=== PATIENT | male | born 1950 | race Caucasian/White ===

== ENCOUNTER → 2024-05-13 14:05 | Outpatient (REF) | payer MEDICARE, OTHER, SELFPAY | LOC: UCDH 14:05 | PROVIDERS: ATTENDING PHYSICIAN Emergency Medicine; FAMILY PHYSICIAN Family Medicine | DX: R05.3 Chronic cough (principal) | CPT/HCPCS: 71046 ==

== ENCOUNTER → 2024-05-15 15:09 | Outpatient (REF) | payer MEDICARE, OTHER, SELFPAY | LOC: RAD 15:09 | PROVIDERS: ATTENDING PHYSICIAN Internal Medicine Critical Care Medicine; FAMILY PHYSICIAN Family Medicine | DX: R91.8 Other nonspecific abnormal finding of lung field (principal) | CPT/HCPCS: 71250 ==

== ENCOUNTER 2024-05-25 06:10 | Day surgery (SDC) | payer MEDICARE, OTHER, SELFPAY ==
[2024-05-21 09:26] VITALS: BMI 31.2
[2024-05-25] VITALS (8 sets, daily range): BP systolic 121–162; BP diastolic 71–97; BMI 31.2; BMI 31.7
== END 2024-05-25 15:12 | disposition home or self-care (01) ==
LOC: SDS 06:10
PROVIDERS: ATTENDING PHYSICIAN Internal Medicine Critical Care Medicine
DX: C34.31 Malignant neoplasm of lower lobe, right bronchus or lung (principal); R93.89 Abnormal findings on diagnostic imaging of other specified body structures; C34.11 Malignant neoplasm of upper lobe, right bronchus or lung; R91.8 Other nonspecific abnormal finding of lung field
CPT/HCPCS: 31629; 31623; 31624; 31627; 31654; 88172; 88173; 88305; 71045; 76000; 81459; 88112; 88177; 88333; 88341; 88342; 94640; C1887

== ENCOUNTER → 2024-06-10 17:53 | Outpatient (REF) | payer MEDICARE, OTHER, SELFPAY | LOC: MRI 17:53 | PROVIDERS: ATTENDING PHYSICIAN Internal Medicine Hematology & Oncology; FAMILY PHYSICIAN Family Medicine | DX: C34.11 Malignant neoplasm of upper lobe, right bronchus or lung (principal) | CPT/HCPCS: 70553; A9575 ==

== ENCOUNTER 2024-06-23 06:35 | Day surgery (SDC) | payer MEDICARE, OTHER, SELFPAY ==
[2024-06-23] VITALS (8 sets, daily range): BP systolic 114–173; BP diastolic 81–93; BMI 32.1
[2024-06-23] MEDS: NEURONTIN 300 MG PO (13:16)
[2024-06-23] MEDS: TYLENOL 1000 MG PO (13:17)
[2024-06-23] MEDS: HEPARIN 5000 UNITS SC (13:29)
[2024-06-23] MEDS: NORMOSOL-R/PLASMALYTE-A 1000 IV (13:34)
--- NOTE | 2024-06-23 18:00 | PTCARENOTE ---
Dr Prescott came to see PT after portable Xray, Per DR Prescott, PT ok to leave, PT with no complaints, O2 sats, 92-95% RA
[2024-06-23] MEDS: ZOFRAN 4 MG IV (18:30)
--- NOTE | 2024-06-27 15:43 | OR.RPT ---
Operative Report
Operative Report
Date of Operation: June 23, 2024
Preoperative Diagnosis: Right upper lobe lung cancer - C3411
Postoperative Diagnosis: Same
Surgeon: Jarod Prescott M.D.
Operation: Insertion of the single-lumen port via the right subclavian vein - 38317
����������������Mediastinoscopy and biopsy � [id number]
Anesthesia: Local with IV sedation
Estimated Blood Loss: 1 cc
Drains: None
Specimen: Right upper mediastinal mass and right level 4 paratracheal lymph node
Complications: �None
Procedure:
The patient was taken to the operating room and placed in the usual supine position. After adequate general endotracheal anesthesia was established, the patient's neck was extended. The neck and upper chest were prepped, and the patient was draped
in the usual self-fashion.
Approximately 3 cm transverse incision was made 4 cm below the left midclavicular line after injecting the area with 1% lidocaine. An incision was made with a #15 blade, and a subcutaneous pocket was created using electrocautery.� The left
subclavian vein was accessed using a large-bore needle through the same incision. The guidewire was passed through the needle into the SVC and confirmed on the fluoroscopy. Over the guidewire, the subcutaneous tissue was dilated, and the
angio-sheath was placed in the SVC. The port was placed in the subcutaneous pocket, and the catheter was passed through the angio-sheath into the SVC and confirmed on fluoroscopy.� The ports were aspirated and flushed without any resistance.� After
obtaining adequate hemostasis, the incision was closed in multiple layers. The subcutaneous tissue was reapproximated with # 3-0 Vicryl, and the skin was reapproximated with #4-0 Monocryl in a running subcuticular fashion.
Next, attention was turned to his neck. A two-centimeter cervical incision was made just above the sternal notch using a #15 blade, which was taken through the skin into subcutaneous tissue. The underlying platysma muscle was divided with
electrocautery. The strap muscles were identified and at the midline. The trachea was palpated, and the pretracheal fascia was incised. The anterior mediastinum above the trachea was entered bluntly using a finger. This space was bluntly
dissected toward the ashlee. �A mediastinoscope was placed through the incision into the mediastinum. A lymph node was identified in the right paratracheal area, biopsied using biopsy forceps, and sent to pathology for permanent section. In the
supra-mediastinal area, a nodule was palpated on the right side of the trachea, biopsied, and sent to pathology for a frozen section, which revealed findings consistent with thyroid tissue. Hemostasis was obtained. The strap muscles were
re-approximated with # 3-0 Vicryl in a running fashion. The platysma was also re-approximated with #3-0 Vicryl in an interrupted fashion. The skin was approximated with 4-0 Monocryl in a running subcuticular fashion. Steri-Strips and a pressure
dressing were applied. The patient tolerated the procedure well. The final needle, sponge, and instrument counts were correct. The patient was extubated and sent to the recovery room, where a chest x-ray was obtained, which revealed no evidence of
pneumothorax or any evidence of bleeding.
== END 2024-06-23 19:29 | disposition home or self-care (01) ==
LOC: SDS 06:35
PROVIDERS: ATTENDING PHYSICIAN Surgery
DX: C34.11 Malignant neoplasm of upper lobe, right bronchus or lung (principal)
CPT/HCPCS: 39402; 36561; 88305; 88332; 71045; 76000; 86850; 86900; 86901; 88331; 88341; 88342; C1788

== ENCOUNTER → 2024-07-21 16:09 | Outpatient (REF) | payer MEDICARE, OTHER, SELFPAY ==
[2024-07-21 15:04] LABS: % Basophils 0.4 % (0-2); % Immature Granulocytes 1.3 % (0-0.5); % Lymphocytes 17.1 % (20.5-51.1); % Monocytes 8.2 % (1.7-9.3); Absolute Basophils 0.1 10^3/uL (0-0.2); Absolute Eosinophils 0.9 10^3/uL (0-0.7); Absolute Immature Granulocytes 0.2 10^3/uL (0-0.05); Absolute Lymphocytes 2.1 10^3/uL (1.2-3.4); Absolute Neutrophils 8.3 10^3/uL (1.4-6.5); Hematocrit 45.5 % (39.0-52.0); Hemoglobin 15.3 g/dL (13.0-18.0); Mean Corp Hgb Conc. 33.6 g/dL (33.0-37.0); Mean Corpuscular Hgb 28.4 pg (27.0-31.0); Mean Corpuscular Volume 84.4 fL (80.0-94.0); Mean Platelet Volume 8.8 fL (7.4-10.4); Platelet Count 389 10^3/uL (130-400); Red Blood Cell Count 5.39 10^6/uL (4.70-6.10); Red Cell Dist. Width 13.1 % (11.5-14.5); White Blood Cell Count 12.5 10^3/uL (4.8-10.8)
[2024-07-21 15:52] LABS: ALT (SGPT) 15 U/L (0-50); AST (SGOT) 20 U/L (17-59); Albumin 4.8 g/dl (3.5-5.0); Alkaline Phosphatase 122 U/L (38-126); Blood Urea Nitrogen 18 mg/dl (9-20); Calcium 9.5 mg/dl (8.4-10.2); Carbon Dioxide 26 mmol/L (22-30); Chloride 95 mmol/L (98-107); Glucose 96 mg/dl (70-99); Potassium 4.5 mmol/L (3.5-5.1); Sodium 133 mmol/L (135-145); Total Bilirubin 0.6 mg/dl (0.2-1.3); Total Protein 7.5 g/dl (6.3-8.2); eGFR > 60.00
[2024-07-21 17:18] LABS: Free T3 3.66 pg/ml (2.77-5.27)
[2024-07-21 17:32] LABS: TSH 3.12 uIU/ml (0.47-4.68); TSH Reflex To Free T4 3.12 uIU/ml (0.47-4.68)
[2024-07-21 18:25] LABS: CEA 20.6 ng/ml
== END ==
LOC: OIDL 16:09
PROVIDERS: ATTENDING PHYSICIAN Internal Medicine Hematology & Oncology
DX: C34.11 Malignant neoplasm of upper lobe, right bronchus or lung (principal); R53.82 Chronic fatigue, unspecified
CPT/HCPCS: 80053; 82378; 84443; 84481; 85025

== ENCOUNTER → 2024-08-11 12:35 | Outpatient (REF) | payer MEDICARE, OTHER, SELFPAY ==
[2024-08-11 13:38] LABS: Hematocrit 41.6 % (39.0-52.0); Hemoglobin 13.9 g/dL (13.0-18.0); Mean Corp Hgb Conc. 33.4 g/dL (33.0-37.0); Mean Corpuscular Hgb 28.4 pg (27.0-31.0); Mean Corpuscular Volume 85.1 fL (80.0-94.0); Mean Platelet Volume 8.7 fL (7.4-10.4); Platelet Count 556 10^3/uL (130-400); Red Blood Cell Count 4.89 10^6/uL (4.70-6.10); Red Cell Dist. Width 13.8 % (11.5-14.5); White Blood Cell Count 6.9 10^3/uL (4.8-10.8)
[2024-08-11 13:44] LABS: ALT (SGPT) 34 U/L (0-50); AST (SGOT) 26 U/L (17-59); Alkaline Phosphatase 127 U/L (38-126); Blood Urea Nitrogen 14 mg/dl (9-20); Calcium 9.3 mg/dl (8.4-10.2); Carbon Dioxide 28 mmol/L (22-30); Chloride 96 mmol/L (98-107); Glucose 89 mg/dl (70-99); Potassium 4.9 mmol/L (3.5-5.1); Sodium 132 mmol/L (135-145); Total Bilirubin 0.2 mg/dl (0.2-1.3); Total Protein 6.5 g/dl (6.3-8.2); eGFR > 60.00
[2024-08-11 14:00] LABS: Free T4 0.99 ng/dl (0.78-2.19)
[2024-08-11 14:07] LABS: % Basophils 1.5 % (0-2); % Eosinophils 11.5 % (0-6); % Immature Granulocytes 5.2 % (0-0.5); % Lymphocytes 26.5 % (20.5-51.1); % Monocytes 16.7 % (1.7-9.3); % Neutrophils 38.6 % (42.2-75.2); Absolute Basophils 0.1 10^3/uL (0-0.2); Absolute Eosinophils 0.8 10^3/uL (0-0.7); Absolute Immature Granulocytes 0.4 10^3/uL (0-0.05); Absolute Lymphocytes 1.8 10^3/uL (1.2-3.4); Absolute Monocytes 1.2 10^3/uL (0.1-0.6); Absolute Neutrophils 2.7 10^3/uL (1.4-6.5); Nucleated Red Blood Cells % 0 % (-)
[2024-08-11 14:14] LABS: TSH Reflex To Free T4 4.28 uIU/ml (0.47-4.68)
[2024-08-13 18:43] LABS: Total T3 (Sendout) 127 ng/dL (80-200)
== END ==
LOC: REG 12:35
PROVIDERS: ATTENDING PHYSICIAN Internal Medicine Hematology & Oncology
DX: C34.11 Malignant neoplasm of upper lobe, right bronchus or lung (principal); E78.2 Mixed hyperlipidemia
CPT/HCPCS: 36415; 80053; 84439; 84443; 84480; 85025

== ENCOUNTER → 2024-09-01 11:05 | Outpatient (REF) | payer MEDICARE, OTHER, SELFPAY ==
[2024-09-01 12:15] LABS: Hematocrit 41.8 % (39.0-52.0); Hemoglobin 13.9 g/dL (13.0-18.0); Mean Corp Hgb Conc. 33.3 g/dL (33.0-37.0); Mean Corpuscular Hgb 28.5 pg (27.0-31.0); Mean Corpuscular Volume 85.8 fL (80.0-94.0); Mean Platelet Volume 8.8 fL (7.4-10.4); Platelet Count 355 10^3/uL (130-400); Red Blood Cell Count 4.87 10^6/uL (4.70-6.10); Red Cell Dist. Width 15.4 % (11.5-14.5)
[2024-09-01 12:23] LABS: ALT (SGPT) 36 U/L (0-50); AST (SGOT) 26 U/L (17-59); Alkaline Phosphatase 137 U/L (38-126); Blood Urea Nitrogen 17 mg/dl (9-20); Calcium 9.5 mg/dl (8.4-10.2); Carbon Dioxide 28 mmol/L (22-30); Chloride 98 mmol/L (98-107); Glucose 110 mg/dl (70-99); Potassium 4.8 mmol/L (3.5-5.1); Sodium 132 mmol/L (135-145); Total Bilirubin 0.3 mg/dl (0.2-1.3); Total Protein 6.5 g/dl (6.3-8.2); eGFR > 60.00
[2024-09-01 12:52] LABS: TSH Reflex To Free T4 3.49 uIU/ml (0.47-4.68)
[2024-09-01 12:55] LABS: % Eosinophils 7.4 % (0-6); % Immature Granulocytes 5.7 % (0-0.5); % Lymphocytes 26.6 % (20.5-51.1); % Neutrophils 44.3 % (42.2-75.2); Absolute Basophils 0.1 10^3/uL (0-0.2); Absolute Eosinophils 0.4 10^3/uL (0-0.7); Absolute Immature Granulocytes 0.3 10^3/uL (0-0.05); Absolute Lymphocytes 1.6 10^3/uL (1.2-3.4); Absolute Monocytes 0.9 10^3/uL (0.1-0.6); Absolute Neutrophils 2.6 10^3/uL (1.4-6.5); Nucleated Red Blood Cells % 0 % (-)
[2024-09-02 15:57] LABS: Total T3 (Sendout) 137 ng/dL (80-200)
== END ==
LOC: REG 11:05
PROVIDERS: ATTENDING PHYSICIAN Internal Medicine Hematology & Oncology
DX: C34.11 Malignant neoplasm of upper lobe, right bronchus or lung (principal); E03.9 Hypothyroidism, unspecified
CPT/HCPCS: 36415; 80053; 84439; 84443; 84480; 85025

== ENCOUNTER → 2024-09-22 09:26 | Outpatient (REF) | payer MEDICARE, OTHER, SELFPAY ==
[2024-09-22 11:30] LABS: % Basophils 0.9 % (0-2); % Eosinophils 4.6 % (0-6); % Immature Granulocytes 2.9 % (0-0.5); % Lymphocytes 28.6 % (20.5-51.1); % Monocytes 16.9 % (1.7-9.3); % Neutrophils 46.1 % (42.2-75.2); Absolute Eosinophils 0.2 10^3/uL (0-0.7); Absolute Immature Granulocytes 0.1 10^3/uL (0-0.05); Absolute Lymphocytes 1.3 10^3/uL (1.2-3.4); Absolute Monocytes 0.8 10^3/uL (0.1-0.6); Absolute Neutrophils 2.1 10^3/uL (1.4-6.5); Hematocrit 41.3 % (39.0-52.0); Hemoglobin 13.9 g/dL (13.0-18.0); Mean Corp Hgb Conc. 33.7 g/dL (33.0-37.0); Mean Corpuscular Hgb 29.4 pg (27.0-31.0); Mean Corpuscular Volume 87.5 fL (80.0-94.0); Nucleated Red Blood Cells % 0 % (-); Platelet Count 351 10^3/uL (130-400); Red Blood Cell Count 4.72 10^6/uL (4.70-6.10); White Blood Cell Count 4.6 10^3/uL (4.8-10.8)
[2024-09-22 12:24] LABS: ALT (SGPT) 38 U/L (0-50); AST (SGOT) 28 U/L (17-59); Albumin 3.9 g/dl (3.5-5.0); Alkaline Phosphatase 115 U/L (38-126); Blood Urea Nitrogen 22 mg/dl (9-20); Calcium 9.6 mg/dl (8.4-10.2); Carbon Dioxide 28 mmol/L (22-30); Chloride 102 mmol/L (98-107); Glucose 98 mg/dl (70-99); Potassium 5.4 mmol/L (3.5-5.1); Sodium 135 mmol/L (135-145); Total Bilirubin 0.4 mg/dl (0.2-1.3); Total Protein 6.4 g/dl (6.3-8.2); eGFR > 60.00
[2024-09-22 12:35] LABS: Free T4 0.92 ng/dl (0.78-2.19)
[2024-09-22 12:49] LABS: TSH Reflex To Free T4 3.88 uIU/ml (0.47-4.68)
[2024-09-23 17:10] LABS: Total T3 (Sendout) 131 ng/dL (80-200)
== END ==
LOC: REG 09:26
PROVIDERS: ATTENDING PHYSICIAN Internal Medicine Hematology & Oncology
DX: C34.11 Malignant neoplasm of upper lobe, right bronchus or lung (principal); E03.9 Hypothyroidism, unspecified
CPT/HCPCS: 36415; 80053; 84439; 84443; 84480; 85025

== ENCOUNTER → 2024-10-13 10:49 | Outpatient (REF) | payer MEDICARE, OTHER, SELFPAY ==
[2024-10-13 11:41] LABS: Hematocrit 38.5 % (39.0-52.0); Mean Corp Hgb Conc. 33.8 g/dL (33.0-37.0); Mean Corpuscular Hgb 29.8 pg (27.0-31.0); Mean Corpuscular Volume 88.3 fL (80.0-94.0); Platelet Count 304 10^3/uL (130-400); Red Blood Cell Count 4.36 10^6/uL (4.70-6.10); Red Cell Dist. Width 17.6 % (11.5-14.5); White Blood Cell Count 4.9 10^3/uL (4.8-10.8)
[2024-10-13 11:56] LABS: ALT (SGPT) 32 U/L (0-50); AST (SGOT) 27 U/L (17-59); Albumin 3.9 g/dl (3.5-5.0); Alkaline Phosphatase 118 U/L (38-126); Blood Urea Nitrogen 21 mg/dl (9-20); Calcium 9.4 mg/dl (8.4-10.2); Carbon Dioxide 27 mmol/L (22-30); Chloride 105 mmol/L (98-107); Glucose 101 mg/dl (70-99); Sodium 139 mmol/L (135-145); Total Bilirubin 0.5 mg/dl (0.2-1.3); Total Protein 6.3 g/dl (6.3-8.2); eGFR 49.16
[2024-10-13 12:13] LABS: Free T4 0.94 ng/dl (0.78-2.19)
[2024-10-13 12:27] LABS: TSH 3.95 uIU/ml (0.47-4.68)
[2024-10-13 15:26] LABS: % Basophils 0.6 % (0-2); % Eosinophils 3.5 % (0-6); % Immature Granulocytes 1.4 % (0-0.5); % Lymphocytes 27.7 % (20.5-51.1); % Monocytes 15.9 % (1.7-9.3); % Neutrophils 50.9 % (42.2-75.2); Absolute Eosinophils 0.2 10^3/uL (0-0.7); Absolute Immature Granulocytes 0.1 10^3/uL (0-0.05); Absolute Lymphocytes 1.4 10^3/uL (1.2-3.4); Absolute Monocytes 0.8 10^3/uL (0.1-0.6); Absolute Neutrophils 2.5 10^3/uL (1.4-6.5); Nucleated Red Blood Cells % 0 % (-)
[2024-10-14 14:13] LABS: Total T3 (Sendout) 130 ng/dL (80-200)
== END ==
LOC: REG 10:49
PROVIDERS: ATTENDING PHYSICIAN Internal Medicine Hematology & Oncology
DX: C34.11 Malignant neoplasm of upper lobe, right bronchus or lung (principal); E03.9 Hypothyroidism, unspecified
CPT/HCPCS: 36415; 80053; 84439; 84443; 84480; 85025

== ENCOUNTER → 2024-11-03 08:37 | Outpatient (REF) | payer MEDICARE, OTHER, SELFPAY ==
[2024-11-03 10:15] LABS: % Basophils 0.8 % (0-2); % Eosinophils 5.6 % (0-6); % Immature Granulocytes 1.6 % (0-0.5); % Monocytes 18.4 % (1.7-9.3); % Neutrophils 42.6 % (42.2-75.2); Absolute Eosinophils 0.2 10^3/uL (0-0.7); Absolute Immature Granulocytes 0.1 10^3/uL (0-0.05); Absolute Lymphocytes 1.2 10^3/uL (1.2-3.4); Absolute Monocytes 0.7 10^3/uL (0.1-0.6); Absolute Neutrophils 1.6 10^3/uL (1.4-6.5); Hematocrit 35.8 % (39.0-52.0); Hemoglobin 12.3 g/dL (13.0-18.0); Mean Corp Hgb Conc. 34.4 g/dL (33.0-37.0); Mean Corpuscular Hgb 31.1 pg (27.0-31.0); Mean Corpuscular Volume 90.6 fL (80.0-94.0); Mean Platelet Volume 9.4 fL (7.4-10.4); Nucleated Red Blood Cells % 0 % (-); Platelet Count 262 10^3/uL (130-400); Red Blood Cell Count 3.95 10^6/uL (4.70-6.10); Red Cell Dist. Width 17.7 % (11.5-14.5); White Blood Cell Count 3.7 10^3/uL (4.8-10.8)
[2024-11-03 10:22] LABS: ALT (SGPT) 29 U/L (0-50); AST (SGOT) 27 U/L (17-59); Albumin 4.2 g/dl (3.5-5.0); Alkaline Phosphatase 115 U/L (38-126); Blood Urea Nitrogen 18 mg/dl (9-20); Calcium 9.2 mg/dl (8.4-10.2); Carbon Dioxide 27 mmol/L (22-30); Chloride 104 mmol/L (98-107); Glucose 108 mg/dl (70-99); Potassium 4.8 mmol/L (3.5-5.1); Sodium 138 mmol/L (135-145); Total Bilirubin 0.4 mg/dl (0.2-1.3); Total Protein 6.4 g/dl (6.3-8.2); eGFR 58.37
[2024-11-03 10:37] LABS: Free T4 0.93 ng/dl (0.78-2.19)
[2024-11-03 10:51] LABS: TSH 4.18 uIU/ml (0.47-4.68)
[2024-11-05 07:35] LABS: Total T3 (Sendout) 126 ng/dL (80-200)
== END ==
LOC: REG 08:37
PROVIDERS: ATTENDING PHYSICIAN Internal Medicine Hematology & Oncology
DX: C34.11 Malignant neoplasm of upper lobe, right bronchus or lung (principal); E03.9 Hypothyroidism, unspecified
CPT/HCPCS: 36415; 80053; 84439; 84443; 84480; 85025

== ENCOUNTER → 2024-11-27 07:13 | Outpatient (REF) | payer MEDICARE, OTHER, SELFPAY | LOC: RCS 07:13 | PROVIDERS: ATTENDING PHYSICIAN Internal Medicine Cardiovascular Disease | DX: I25.10 Atherosclerotic heart disease of native coronary artery without angina pectoris (principal); R01.1 Cardiac murmur, unspecified | CPT/HCPCS: 93306; 93356 ==

== ENCOUNTER 2024-12-01 06:28 | Inpatient (IN) | payer MEDICARE, OTHER, SELFPAY ==
[2024-11-17 08:45] LABS: Hematocrit 39.3 % (39.0-52.0); Hemoglobin 13.4 g/dL (13.0-18.0); Mean Corp Hgb Conc. 34.1 g/dL (33.0-37.0); Mean Corpuscular Hgb 31.8 pg (27.0-31.0); Mean Corpuscular Volume 93.1 fL (80.0-94.0); Mean Platelet Volume 9.6 fL (7.4-10.4); Platelet Count 219 10^3/uL (130-400); Red Blood Cell Count 4.22 10^6/uL (4.70-6.10); Red Cell Dist. Width 16.7 % (11.5-14.5); White Blood Cell Count 7.5 10^3/uL (4.8-10.8)
[2024-11-17 09:00] LABS: ALT (SGPT) 19 U/L (0-50); AST (SGOT) 30 U/L (17-59); Albumin 4.4 g/dl (3.5-5.0); Alkaline Phosphatase 95 U/L (38-126); Blood Urea Nitrogen 18 mg/dl (9-20); Calcium 9.2 mg/dl (8.4-10.2); Carbon Dioxide 28 mmol/L (22-30); Chloride 104 mmol/L (98-107); Glucose 106 mg/dl (70-99); Potassium 4.7 mmol/L (3.5-5.1); Sodium 141 mmol/L (135-145); Total Bilirubin 0.7 mg/dl (0.2-1.3); Total Protein 6.6 g/dl (6.3-8.2); eGFR 49.16
[2024-11-17 09:02] LABS: INR 0.96; PT 13.1 Sec (11.4-14.6)
[2024-11-17 09:03] LABS: APTT 27.3 Sec (23.4-35.0)
[2024-11-17 13:04] VITALS: BMI 32.1
[2024-12-01] VITALS (22 sets, daily range): BP systolic 125–177; BP diastolic 78–124; BMI 32.1
[2024-12-01] MEDS: HEPARIN 5000 UNITS SC ×2 (06:57→21:07)
[2024-12-01] MEDS: TYLENOL 1000 MG PO (06:57)
[2024-12-01] MEDS: NEURONTIN 300 MG PO (06:57)
[2024-12-01] MEDS: NORMOSOL-R/PLASMALYTE-A 1000 IV (07:33)
--- NOTE | 2024-12-01 12:17 | OR.RPT ---
Operative Report
Operative Report
Patient Name: Timothy Shook
Date of : 1950 12:16 PM
Date of Operation: December 01, 2024
Preoperative Diagnosis: Right upper lobe lung cancer - C3411
Postoperative Diagnosis: Same
Surgeon: Jarod Prescott M.D.
Operation: Minimally invasive right upper lobectomy and resection of the superior segment of the right lower lobe � 65278, and mediastinal lymph node dissection - 72188
Anesthesia: GET
Estimated Blood Loss: 50 cc
Drains: Chest tube in the right chest
Specimen: Right upper lobe with the superior segment of the right lower lobe and mediastinal lymph nodes
Complications: None
Procedure:
The patient was taken to the operating room and placed in the usual supine position. After an adequate double-lumen endotracheal tube was placed, the patient was positioned in the left decubitus position with the right chest up. The right chest was
prepped and draped in the usual sterile fashion. At this time, a 6 cm mid-axillary incision was made with a #10 blade, and this was taken through the skin into the subcutaneous tissue. The serratus anterior muscle overlying the 5th intercostal space
was identified and split along the course of the muscle fibers. The intercostal muscle of the fifth intercostal space was divided, and the left chest was entered. The left chest was explored. The tumor in the posterior aspect of the right lower lobe
involving the right lower lobe was identified.
The fissure between the right upper lobe and the right middle lobe was completed using Ligasure and EndoGIA purple tri-stapler. To remove the tumor completely, the superior segment of the right lower lobe was resected with the main specimen. The
left pulmonary artery branches to the right upper lobe were identified, carefully dissected, ligated, and divided with an EndoGIA gold vascular stapler. The right superior vein draining the right upper lobe was identified, carefully dissected,
transected, and ligated with an EndoGIA vascular gold stapler. The bronchus was dissected, transected, and divided with an EndoGIA purple stapler. The right upper lobe with the superior segment of the right lower lobe was removed and sent to
pathology for a permanent section. At this time, mediastinal lymph node dissection was performed. The lymph nodes from stations 4 to 8 were taken and sent to pathology for permanent section. One of the 4R lymph nodes was noted to be hard and stuck
to the tracheal, which most likely represent the previous biopsied LN. The partially this lymph node was taken and sent to the pathology department as 4R LN #2. Hemostasis was obtained. A 28 [place] chest tube was placed through the anterior
thoracostomy incision and anchored to the skin using a #2 nylon suture. The ribs were re-approximated with 1 Vicryl in the transcostal fascia. The serratus anterior muscle was also re-approximated with 1 Vicryl in a running fashion. The fascia was
approximated with 1 Vicryl in a running fashion. The subcutaneous tissue was re-approximated with 3-0 Vicryl in a running fashion. The skin was approximated with 4-0 Monocryl in a running subcuticular fashion. Steri-strips and a sterile dressing
were placed. The chest tube was connected to the Pleurovac. The patient was placed back in the supine position and extubated without any problems. The final needle, sponge, and instrument counts were correct. The patient was transferred to the
recovery room.
[2024-12-01] MEDS: ZOFRAN 4 MG IV ×2 (15:55→22:57)
[2024-12-01] MEDS: D5/0.9% SODIUM CHLORIDE 1000 IV (15:56)
[2024-12-01] MEDS: DILAUDID 0.5 MG IV ×3 (16:26→22:57)
[2024-12-01] MEDS: TYLENOL 650 MG PO ×2 (16:26→21:07)
[2024-12-01] MEDS: NEURONTIN 200 MG PO ×2 (16:26→21:06)
[2024-12-01] MEDS: ANCEF 10 IV ×2 (16:26→23:39)
--- NOTE | 2024-12-01 16:44 | PTCARENOTE ---
Patient admitted from PACU. Chest tube site CDI. at bedside. Patient given IV Zofran and Dilaudid per request. Call barnett within reach.
--- NOTE | 2024-12-01 18:37 | PTCARENOTE ---
MD made aware of bps. Patient c/o of moderate pain. Dilaudid given per prn order. Otherwise patient having no other symptoms. Patient sating 97% on 2 L. No new orders at this time.
[2024-12-01] MEDS: COLACE 100 MG PO (21:07)
[2024-12-01] MEDS: TYLENOL PO (23:45)
[2024-12-02] MEDS: DILAUDID 0.5 MG IV ×4 (02:35→11:06)
[2024-12-02 03:08] VITALS: BP 157/89
[2024-12-02] MEDS: ZOFRAN 4 MG IV ×2 (05:05→11:09)
[2024-12-02] MEDS: TYLENOL 650 MG PO ×6 (05:06→23:08)
[2024-12-02] MEDS: D5/0.9% SODIUM CHLORIDE 1000 IV (05:06)
[2024-12-02 05:08] LABS: Hematocrit 34.6 % (39.0-52.0); Hemoglobin 12.1 g/dL (13.0-18.0); Mean Corpuscular Hgb 31.9 pg (27.0-31.0); Mean Corpuscular Volume 91.3 fL (80.0-94.0); Mean Platelet Volume 9.3 fL (7.4-10.4); Platelet Count 200 10^3/uL (130-400); Red Blood Cell Count 3.79 10^6/uL (4.70-6.10); Red Cell Dist. Width 14.4 % (11.5-14.5)
[2024-12-02 05:37] LABS: Blood Urea Nitrogen 18 mg/dl (9-20); Carbon Dioxide 24 mmol/L (22-30); Chloride 107 mmol/L (98-107); Estimated Creatinine Clearance 62 ml/min; Glucose 157 mg/dl (70-99); Potassium 4.6 mmol/L (3.5-5.1); Sodium 136 mmol/L (135-145); eGFR > 60.00
[2024-12-02 07:05] VITALS: BP 160/90
[2024-12-02] MEDS: PEPCID 20 MG PO (07:45)
[2024-12-02] MEDS: COLACE 100 MG PO ×2 (07:45→21:10)
[2024-12-02] MEDS: NEURONTIN 200 MG PO ×3 (07:45→21:10)
[2024-12-02] MEDS: HEPARIN 5000 UNITS SC ×2 (07:45→21:10)
[2024-12-02] MEDS: ANCEF 10 IV (07:46)
[2024-12-02] MEDS: COMPAZINE 5 MG IV ×2 (07:47→15:18)
--- NOTE | 2024-12-02 09:52 | CM ---
CM following re: discharge planning.
Reviewed pt's chart, met with pt.
Pt is a 74 year old male, admitted with primary dx of POD # 1 right upper lobectomy and resection of the superior segment of the right lower lobe.
Pt reports he lives with spouse and adult autistic son in a 4SH, 4 steps to enter. 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 No DME, VN or SNF history. Pt expressed his desire to return back home at discharge.
PCP: pt stated he does not have PCP, has a list of physician and she will choose one soon.
Pharmacy: [facility].
D/C plan: home with anticipated no needs. Spouse to transport at discharge.
CM will follow with discharge plan updates as hospitalization progresses
[2024-12-02 11:05] VITALS: BP 161/90; PULSE 74; O2SAT 98
--- NOTE | 2024-12-02 14:55 | W.PN.GENERIC ---
Assessment / Plan
-
S/p Minimally invasive right upper lobectomy POD #1
Stable
Chest tube to H2O seal
Inc diet to regular
Will add Toradol
OOB and ambulate
Physician Progress Note
Subjective
NO complaint. No SOB. Good pain control
Objective
Vital Signs
Temp Pulse Resp BP Pulse Ox
98.0 F 74 17 160/90 99
12/02/24 07:05 12/02/24 07:05 12/02/24 07:05 12/02/24 07:05 12/02/24 07:05
Lab Results
12/02/24 05:02
12/02/24 05:02
CHest CTA x2
CHest tube without air leak
[2024-12-02 15:05] VITALS: BP 124/78
[2024-12-02] MEDS: TORADOL 15 MG IV ×2 (17:04→23:08)
[2024-12-02 23:02] VITALS: BP 150/93
--- NOTE | 2024-12-02 23:30 | PTCARENOTE ---
Pt is retaining some urine, see worklist. Most recent PVR= 450mL after pt voided 180mL. Pt declining straight cath at this time. Education provided and plan made to recheck bladder in the morning.
[2024-12-03 04:12] LABS: Hematocrit 35.3 % (39.0-52.0); Hemoglobin 11.5 g/dL (13.0-18.0); Mean Corp Hgb Conc. 32.6 g/dL (33.0-37.0); Mean Corpuscular Hgb 31.3 pg (27.0-31.0); Mean Corpuscular Volume 95.9 fL (80.0-94.0); Mean Platelet Volume 9.5 fL (7.4-10.4); Platelet Count 188 10^3/uL (130-400); Red Blood Cell Count 3.68 10^6/uL (4.70-6.10); Red Cell Dist. Width 14.2 % (11.5-14.5); White Blood Cell Count 13.2 10^3/uL (4.8-10.8)
[2024-12-03 04:39] LABS: Blood Urea Nitrogen 15 mg/dl (9-20); Calcium 8.2 mg/dl (8.4-10.2); Carbon Dioxide 26 mmol/L (22-30); Chloride 110 mmol/L (98-107); Estimated Creatinine Clearance 68 ml/min; Glucose 115 mg/dl (70-99); Sodium 139 mmol/L (135-145); eGFR > 60.00
[2024-12-03] MEDS: TORADOL 15 MG IV ×4 (05:04→23:42)
[2024-12-03] MEDS: TYLENOL 650 MG PO ×5 (05:04→20:33)
[2024-12-03 07:00] VITALS: BP 160/90
[2024-12-03] MEDS: ROXICODONE 5 MG PO ×2 (07:50→20:32)
[2024-12-03] MEDS: PEPCID 20 MG PO (07:51)
[2024-12-03] MEDS: COLACE 100 MG PO ×2 (07:51→20:33)
[2024-12-03] MEDS: HEPARIN 5000 UNITS SC ×2 (07:51→20:33)
[2024-12-03] MEDS: NEURONTIN 200 MG PO ×3 (07:51→20:32)
[2024-12-03 08:58] VITALS: BMI 32.1
[2024-12-03 09:33] VITALS: BP 169/102; PULSE 94; O2SAT 96
--- NOTE | 2024-12-03 12:49 | PTCARENOTE ---
Patient seen at bedside and Chest tube removed by Dr. Prescott. R thorax site dressing C/D/I at this time. No s/s of distress noted. Plan of care ongoing.
--- NOTE | 2024-12-03 12:51 | W.PN.GENERIC ---
Assessment / Plan
-
S/p min inv right upper lobectomy. POD #2
Surgically stable
Chest tube removed. Will check CXR in 3 hours
OOB and ambulate
Await path
Physician Progress Note
Subjective
no complaints. excellent pain control
Objective
Vital Signs
Temp Pulse Resp BP Pulse Ox
98.2 F 91 17 160/90 95
12/03/24 07:00 12/03/24 07:00 12/03/24 07:00 12/03/24 07:00 12/03/24 08:58
Lab Results
12/03/24 03:47
12/03/24 03:47
Chest - CTA x 2
Chest tube without airleak
--- NOTE | 2024-12-03 12:56 | CM ---
CM following re: discharge planning.
Reviewed pt';s chart, met with pt.
Pt is POD #2 S/p min inv right upper lobectomy, continue supportive care.
PT and POT evaluations noted - pt has no skilled PT/OT needs, independent with functional ability.
D/C plan: home with no after care VN needs. Spouse to transport at discharge.
[2024-12-03 15:00] VITALS: BP 164/97
[2024-12-03] MEDS: TYLENOL PO (23:46)
[2024-12-04] VITALS (7 sets, daily range): BP systolic 140–194; BP diastolic 86–110
[2024-12-04] MEDS: TYLENOL PO (04:47)
--- NOTE | 2024-12-04 07:15 | PTCARENOTE ---
Have discussed pt's HTN with the pediatric nurse practitioner provider throughout the shift. No orders given until change of shift. Day shift RN to give dose of hydalazine now. No complaints noted from pt. No s/s of distress assessed.
[2024-12-04] MEDS: APRESOLINE 5 MG IV (07:17)
[2024-12-04] MEDS: TORADOL IV (07:25)
[2024-12-04] MEDS: ROXICODONE 5 MG PO (08:56)
[2024-12-04] MEDS: NEURONTIN 200 MG PO ×3 (08:58→20:31)
[2024-12-04] MEDS: COLACE 100 MG PO ×2 (08:58→20:31)
[2024-12-04] MEDS: TYLENOL 650 MG PO ×4 (08:58→20:31)
[2024-12-04] MEDS: HEPARIN 5000 UNITS SC ×2 (08:59→20:31)
[2024-12-04] MEDS: PEPCID 20 MG PO (08:59)
[2024-12-04] MEDS: TORADOL 15 MG IV ×2 (11:41→17:28)
--- NOTE | 2024-12-04 12:24 | CON.CAR ---
Addendum entered and electronically signed by Gal Capellan MD 12/04/24 16:51:
I saw and examined the patient.
The Apron Operator's note was reviewed and I agree with the note.
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
Postoperatively he has been persistently hypertensive and blood pressure has been difficult to control
Does not carry diagnosis of hypertension and tells me blood pressures been relatively well-controlled at home off of medications
Suspect that in the near term he will need 1-2 antihypertensive medications to control his blood pressure
Start amlodipine 5 mg daily, first dose today
If he remains hypertensive can add an additional agent tomorrow
Rest per Natividad Soto
Original Note:
Consultation
Consultation Request
Date/Time Consultation Requested: 12/04/2024
Date/Time Consultation Performed: 12/04/2024
Requesting Provider: Dr. Jarod Prescott
Performing Provider: Natividad Soto PA-C for Dr. Gal Capellan
Reason for Consultation: Uncontrolled hypertension
Medical History
-
History of Present Illness:
Patient is a 74-year-old male with past medical history significant for basal cell carcinoma, hyperlipidemia and non-small cell right upper lobe lung cancer. Patient is treated with Chemo/Immunotherapy:� Carboplatinum/Alimta/Keytruda and follows
with Dr. Wharton. He was electively admitted 12/01/2024 and underwent minimally invasive right upper lobectomy without complication. Cardiology being asked to see patient given difficult to control hypertension throughout admission. Patient reports
he does not have history of hypertension however since starting his chemotherapy his blood pressures have been trending upward recently. He was also noted to be hypertensive in cardiology office for preop clearance.
Past medical history:
Hyperlipidemia
Right upper lobe non-small cell lung cancer
Basal cell carcinoma
History of depression
Past Medical History
Past Medical History: Other (See HPI)
Past Surgical History: Tonsilectomy and Other (mediasteinectomy May 2024, left side port placement June 2024)
Social History
Alcohol: None
Drug: None
Personal:
Living: With Family
Family History
Family History: Other (Father with heart failure, CAD/CABG. mother had history of heart failure)
Allergies / Home Medications
Allergy/AdvReac Type Severity Reaction Status Date / Time
codeine Allergy Tongue Verified 12/01/24 06:48
Swelling
�Medication �Instructions �Recorded �Confirmed �Type
No Meds [No Current Medications] 06/18/24 12/01/24 History
Review of Systems
-
History Source: Patient
All other systems: Negative unless noted
Physical Exam
Vital Signs
Temp Pulse Resp BP Pulse Ox
98.6 F 90 17 170/100 98
12/04/24 12:06 12/04/24 12:06 12/04/24 12:06 12/04/24 12:06 12/04/24 12:06
GEN: No distress, awake, Ox3, sitting in bed
HEENT: supple, anicteric, mmm
LUNGS: Subcu emphysema right upper chest otherwise CTA, no wheezes/rales
CV: Reg, S1/S2, 1/6 syst murmur, no rub or gallop
ABD: soft, BS+, NT/ND
EXT: No edema no clubbing or cyanosis
NEURO: Gross non-focal
SKIN: No rash, warm, and dry, pink
Lab Results
12/03/24 03:47
12/03/24 03:47
Impression / Plan
-
PCP: Unknown
Rod Tape Operator: Rj Roberto
Pot Puller: Cheryle White
Oncologist: Dr. Wharton
Impression:
Elective admission 12/01/2024 minimally invasive right upper lobectomy secondary to non-small cell lung cancer
Uncontrolled hypertension
Hyperlipidemia
Right upper lobe non-small cell lung cancer
Basal cell carcinoma
History of depression
Echo 11/27/2024: EF 60 to 65%. Normal right ventricular size and function. Normal by atria. Mild concentric LVH. GLS -17.5%. Grade 1 DD. Mild aortic stenosis with peak/mean gradient 23/13 mmHg. TONE 1.1 cm�.
Plan:
Elective admission 12/01/2024 minimally invasive right upper lobectomy secondary to non-small cell lung cancer
- Doing well on postop day 3, chest tubes removed
-Small stable right pneumothorax noted on chest x-ray 12/03/2024
- Postop hemoglobin stable 11.5 on 12/03/2024
Uncontrolled hypertension
- No previous diagnosis of hypertension however patient was hypertensive at outpatient cardiology office not on any antihypertensive medications prior to admission
- Patient did receive hydralazine IV intermittently for elevated blood pressure
- Blood pressures have been significantly elevated throughout admission possibly related to pain control
- Would start amlodipine 5 mg daily with first dose now
Discussed with patient and at bedside
HPI 12/04/2024:
Patient is a 74-year-old male with past medical history significant for basal cell carcinoma, hyperlipidemia and non-small cell right upper lobe lung cancer. Patient is treated with Chemo/Immunotherapy:� Carboplatinum/Alimta/Keytruda and follows
with Dr. Wharton. He was electively admitted 12/01/2024 and underwent minimally invasive right upper lobectomy without complication. Cardiology being asked to see patient given difficult to control hypertension throughout admission. Patient reports
he does not have history of hypertension however since starting his chemotherapy his blood pressures have been trending upward recently. He was also noted to be hypertensive in cardiology office for preop clearance.
Data Reviewed
-
Radiology: Report Reviewed by me, Discussed with Physician and Discussed with Patient
Labs: Labs Reviewed by me, Discussed with Physician and Discussed with Patient
Old Records: Reviewed
--- NOTE | 2024-12-04 12:33 | PTCARENOTE ---
Patient noted with elevated blood pressure this am, reading in the 190's/ 100's. Vs documented. One dose of hydralazine administered as ordered, no significant effect observed post-administration. Blood pressure remains elevated. Patient denies
chest pain, SOB, or distress noted. patient appears flushed.AAOx3. Dr. Prescott notified of persistent hypertension. cardiology consult ordered.plan of care ongoing.
--- NOTE | 2024-12-04 12:43 | PTCARENOTE ---
No s/s of distress noted at this time.
[2024-12-04] MEDS: NORVASC 5 MG PO (13:27)
--- NOTE | 2024-12-04 13:36 | CM ---
CM following re: discharge planning.
Reviewed pt's chart, met with pt.
Pt is POD #3 S/p min inv right upper lobectomy, elevated BP, continue supportive care.
PT and POT evaluations noted - pt has no skilled PT/OT needs, independent with functional ability.
D/C plan: home with no after care VN needs. Spouse to transport at discharge.
CM will follow with discharge plan updates as hospitalization progresses
--- NOTE | 2024-12-04 13:58 | W.PN.GENERIC ---
Assessment / Plan
-
S/p min inv right upper lobectomy POD #3
Stable
inc BP noted.
Appreciate cardiology svc's help
amlodipine started
If his BP remains stable, possible DC tomorrow
Encourage ambulation
Physician Progress Note
Subjective
No complaints. Good pain control. No CP or SOB
Objective
Vital Signs
Temp Pulse Resp BP Pulse Ox
98.6 F 90 17 170/100 98
12/04/24 12:06 12/04/24 13:27 12/04/24 12:06 12/04/24 13:27 12/04/24 12:06
Lab Results
12/03/24 03:47
12/03/24 03:47
Chest - CTA x 2. Dsg - CDI
Heart - RRR
[2024-12-05] MEDS: TYLENOL 650 MG PO ×3 (00:13→12:07)
[2024-12-05] MEDS: TORADOL 15 MG IV ×3 (00:13→12:07)
[2024-12-05 03:26] VITALS: BP 145/105
[2024-12-05] MEDS: TYLENOL PO (05:30)
[2024-12-05 07:00] VITALS: BP 140/86
[2024-12-05] MEDS: PEPCID 20 MG PO (07:40)
[2024-12-05] MEDS: NEURONTIN 200 MG PO (07:40)
[2024-12-05] MEDS: COLACE 100 MG PO (07:41)
[2024-12-05] MEDS: NORVASC 5 MG PO (07:41)
[2024-12-05] MEDS: HEPARIN 5000 UNITS SC (07:41)
--- NOTE | 2024-12-05 09:51 | W.PN.CARDCBS ---
Addendum entered and electronically signed by Jeremy Mccann DO 12/05/24 12:49:
I saw and examined the patient.
The Upstairs Maid's note was reviewed and I agree with the note.
Comment:
Plan:
Continue Norvasc 5 mg daily. BP is much improved.
He will require further bp follow up with his PCP as outpt.
Consider outpt monitor at time of cardiac follow up given paroxysmal tachycardia noted on monitor.
Stable for d/c from cardiac standpoint.
Original Note:
Today's Communication / Plan
-
Continue amlodipine 5 mg daily
Outpatient cardiology follow-up has been arranged
Stable for discharge from cardiac standpoint
Impression / Plan
-
PCP: Unknown
Potato Inspector: Rj Roberto
Service Coordinator: Cheryle White
Oncologist: Dr. Wharton
Impression:
Elective admission 12/01/2024 minimally invasive right upper lobectomy secondary to non-small cell lung cancer
Uncontrolled hypertension
Hyperlipidemia
Right upper lobe non-small cell lung cancer
Basal cell carcinoma
History of depression
Echo 11/27/2024: EF 60 to 65%. Normal right ventricular size and function. Normal by atria. Mild concentric LVH. GLS -17.5%. Grade 1 DD. Mild aortic stenosis with peak/mean gradient 23/13 mmHg. TONE 1.1 cm�.
Plan:
Elective admission 12/01/2024 minimally invasive right upper lobectomy secondary to non-small cell lung cancer
- Doing well on postop day 4, chest tubes removed
- Small stable right pneumothorax noted on chest x-ray 12/03/2024
- Postop hemoglobin stable 11.5 on 12/03/2024
Uncontrolled hypertension
- No previous diagnosis of hypertension however patient was hypertensive at outpatient cardiology office not on any antihypertensive medications prior to admission
- Patient did receive hydralazine IV intermittently for elevated blood pressure
- Blood pressures have been significantly elevated throughout admission possibly related to pain control
- Blood pressures seem to be improving after initiating amlodipine 5 mg daily 12/04/2024. Will continue current regimen.
Review of tele shows sinus rhythm with runs of PAT and PVCs. Patient is asymptomatic. Will consider outpatient monitor at cardiology follow up.
Outpatient cardiology follow-up has been made in a few weeks to reassess blood pressure and decide if medication needs to be adjusted.
Stable for discharge from cardiology standpoint
Discussed with patient and at bedside
HPI 12/04/2024:
Patient is a 74-year-old male with past medical history significant for basal cell carcinoma, hyperlipidemia and non-small cell right upper lobe lung cancer. Patient is treated with Chemo/Immunotherapy:� Carboplatinum/Alimta/Keytruda and follows
with Dr. Wharton. He was electively admitted 12/01/2024 and underwent minimally invasive right upper lobectomy without complication. Cardiology being asked to see patient given difficult to control hypertension throughout admission. Patient reports
he does not have history of hypertension however since starting his chemotherapy his blood pressures have been trending upward recently. He was also noted to be hypertensive in cardiology office for preop clearance.
Progress Note - Service Coordinator
Subjective
Date of Service: December 05, 2024
Patient seen and examined. at bedside. Feels well. Eager to go home
Objective
Labs:
12/03/24 03:47
12/03/24 03:47
Labs
Hgb 11.5 g/dL (13.0-18.0) L 12/03/24 03:47
Hct 35.3 % (39.0-52.0) L 12/03/24 03:47
Plt Count 188 10^3/uL (130-400) 12/03/24 03:47
PT 13.1 Sec (11.4-14.6) 11/17/24 08:11
INR 0.96 11/17/24 08:11
APTT 27.3 Sec (23.4-35.0) 11/17/24 08:11
Sodium 139 mmol/L (135-145) 12/03/24 03:47
Potassium 4.0 mmol/L (3.5-5.1) 12/03/24 03:47
BUN 15 mg/dl (9-20) 12/03/24 03:47
Creatinine 1.0 mg/dL (0.7-1.3) 12/03/24 03:47
Glucose 115 mg/dl (70-99) H 12/03/24 03:47
Vital Signs and I&O:
Vital Signs
Temp Pulse Resp BP Pulse Ox
98.8 F 87 16 140/86 97
12/05/24 07:00 12/05/24 07:41 12/05/24 07:00 12/05/24 07:41 12/05/24 07:00
Vital Signs
Temp Pulse Resp BP Pulse Ox
98.8 F 87 16 140/86 97
12/05/24 07:00 12/05/24 07:41 12/05/24 07:00 12/05/24 07:41 12/05/24 07:00
Intake & Output
12/03/24 12/04/24 12/05/24 12/06/24
06:59 06:59 06:59 06:59
Intake Total 1674 / 1674 1200 / 1200 680 / 680
Output Total 1984 1150 / 1150
Balance -311 / -311 50 / 50 680 / 680
Physical Exam
Physical Exam
GEN: No distress, awake, Ox3, sitting in bed
HEENT: supple, anicteric, mmm
LUNGS: CTA, no wheezes/rales
CV: Reg, occasional ectopy, S1/S2, 1/6 syst murmur, no rub or gallop
ABD: soft, BS+, NT/ND
EXT: No edema no clubbing or cyanosis
NEURO: Gross non-focal
SKIN: No rash, warm, and dry, pink
--- NOTE | 2024-12-05 10:47 | W.DS.TRANS ---
Addendum entered and electronically signed by Natividad Soto PA-C 12/05/24 11:08:
Amlodipine 5 mg daily added during admission
Original Note:
DC Summary - Certified Nurse
-
Discharge Instructions:
Sleep Apnea Risk Intermediate
Discharge Diagnosis/Procedures Lung cancer
Diet Regular
Activity No strenuous activity
Driving Restrictions not until stop taking narcotics for pain
Bathing Restrictions OK to Shower
Instructions:
Stand-Alone Forms:
Changes to Home Medications: Yes
Discharge Medications:
DC Medications w/original date entered in [employer]
No Meds [No Current Medications] 06/18/24
Home Medication Changes
Pending Results: No
[2024-12-05 11:00] VITALS: BP 158/98
--- NOTE | 2024-12-05 13:07 | CM ---
Patient has been medically cleared for discharge to home with no additional skilled services. Declined HH RN. Family will transport home.
== END 2024-12-05 13:32 | disposition home or self-care (01) | DRG 164 ==
LOC: 2 NORTH 06:28
PROVIDERS: ADMITTING PHYSICIAN Surgery; OTHER PHYSICIAN Internal Medicine Cardiovascular Disease; REFERRING PHYSICIAN Internal Medicine Cardiovascular Disease
PROC: 0BTC0ZZ Resection of Right Upper Lung Lobe, Open Approach (ICD-10-PCS; 2024-12-01)
PROC: 0BBF0ZZ Excision of Right Lower Lung Lobe, Open Approach (ICD-10-PCS; 2024-12-01)
PROC: 07B70ZX Excision of Thorax Lymphatic, Open Approach, Diagnostic (ICD-10-PCS; 2024-12-01)
DX: C34.11 Malignant neoplasm of upper lobe, right bronchus or lung (principal); J93.9 Pneumothorax, unspecified; F32.A Depression, unspecified; N40.0 Benign prostatic hyperplasia without lower urinary tract symptoms; Z88.5 Allergy status to narcotic agent; I10 Essential (primary) hypertension; E78.5 Hyperlipidemia, unspecified; Z85.828 Personal history of other malignant neoplasm of skin; Z82.49 Family history of ischemic heart disease and other diseases of the circulatory system
CPT/HCPCS: 88305; 88309; 36415; 71045; 80048; 80053; 85027; 85610; 85730; 86850; 86900; 86901; 93005; 97163; 97166; 97530; C1776

== ENCOUNTER → 2024-12-15 09:42 | Outpatient (REF) | payer MEDICARE, OTHER, SELFPAY ==
[2024-12-15 10:47] LABS: % Basophils 0.7 % (0-2); % Immature Granulocytes 0.8 % (0-0.5); % Lymphocytes 12.2 % (20.5-51.1); % Neutrophils 74.3 % (42.2-75.2); Absolute Basophils 0.1 10^3/uL (0-0.2); Absolute Eosinophils 0.6 10^3/uL (0-0.7); Absolute Immature Granulocytes 0.1 10^3/uL (0-0.05); Absolute Lymphocytes 1.4 10^3/uL (1.2-3.4); Absolute Monocytes 0.8 10^3/uL (0.1-0.6); Absolute Neutrophils 8.5 10^3/uL (1.4-6.5); Hematocrit 38.7 % (39.0-52.0); Hemoglobin 13.1 g/dL (13.0-18.0); Mean Corp Hgb Conc. 33.9 g/dL (33.0-37.0); Mean Corpuscular Hgb 31.3 pg (27.0-31.0); Mean Corpuscular Volume 92.6 fL (80.0-94.0); Mean Platelet Volume 9.3 fL (7.4-10.4); Nucleated Red Blood Cells % 0 % (-); Platelet Count 330 10^3/uL (130-400); Red Blood Cell Count 4.18 10^6/uL (4.70-6.10); Red Cell Dist. Width 12.9 % (11.5-14.5); White Blood Cell Count 11.4 10^3/uL (4.8-10.8)
[2024-12-15 11:42] LABS: ALT (SGPT) 16 U/L (0-50); AST (SGOT) 26 U/L (17-59); Albumin 4.2 g/dl (3.5-5.0); Alkaline Phosphatase 154 U/L (38-126); Blood Urea Nitrogen 17 mg/dl (9-20); Calcium 9.4 mg/dl (8.4-10.2); Carbon Dioxide 23 mmol/L (22-30); Chloride 106 mmol/L (98-107); Glucose 108 mg/dl (70-99); Potassium 5.1 mmol/L (3.5-5.1); Sodium 137 mmol/L (135-145); Total Bilirubin 0.4 mg/dl (0.2-1.3); Total Protein 6.6 g/dl (6.3-8.2); eGFR > 60.00
[2024-12-15 11:44] LABS: Free T4 1.29 ng/dl (0.78-2.19)
[2024-12-15 11:58] LABS: TSH 4.43 uIU/ml (0.47-4.68)
[2024-12-17 10:40] LABS: Total T3 (Sendout) 144 ng/dL (80-200)
== END ==
LOC: REG 09:42
PROVIDERS: ATTENDING PHYSICIAN Internal Medicine Hematology & Oncology
DX: C34.11 Malignant neoplasm of upper lobe, right bronchus or lung (principal); E03.9 Hypothyroidism, unspecified
CPT/HCPCS: 36415; 80053; 84439; 84443; 84480; 85025

== ENCOUNTER 2025-01-09 20:06 | Inpatient (IN) | payer MEDICARE, OTHER, SELFPAY ==
[2025-01-09] VITALS (13 sets, daily range): BP systolic 143–167; BP diastolic 82–102; BMI 31.2; BMI 30.4
[2025-01-09 12:16] LABS: % Basophils 0.6 % (0-2); % Eosinophils 2.6 % (0-6); % Immature Granulocytes 0.4 % (0-0.5); % Lymphocytes 10.7 % (20.5-51.1); % Monocytes 7.7 % (1.7-9.3); Absolute Basophils 0.1 10^3/uL (0-0.2); Absolute Eosinophils 0.4 10^3/uL (0-0.7); Absolute Immature Granulocytes 0.1 10^3/uL (0-0.05); Absolute Lymphocytes 1.5 10^3/uL (1.2-3.4); Absolute Monocytes 1.1 10^3/uL (0.1-0.6); Absolute Neutrophils 10.9 10^3/uL (1.4-6.5); Hematocrit 37.4 % (39.0-52.0); Hemoglobin 12.9 g/dL (13.0-18.0); Mean Corp Hgb Conc. 34.5 g/dL (33.0-37.0); Mean Corpuscular Hgb 29.9 pg (27.0-31.0); Mean Corpuscular Volume 86.8 fL (80.0-94.0); Nucleated Red Blood Cells % 0 % (-); Platelet Count 262 10^3/uL (130-400); Red Blood Cell Count 4.31 10^6/uL (4.70-6.10); Red Cell Dist. Width 12.1 % (11.5-14.5)
[2025-01-09 12:25] LABS: ALT (SGPT) 13 U/L (0-50); AST (SGOT) 24 U/L (17-59); Albumin 4.3 g/dl (3.5-5.0); Alkaline Phosphatase 129 U/L (38-126); Blood Urea Nitrogen 17 mg/dl (9-20); Calcium 9.3 mg/dl (8.4-10.2); Carbon Dioxide 22 mmol/L (22-30); Chloride 105 mmol/L (98-107); Glucose 117 mg/dl (70-99); Potassium 4.5 mmol/L (3.5-5.1); Sodium 136 mmol/L (135-145); Total Bilirubin 0.6 mg/dl (0.2-1.3); eGFR > 60.00
[2025-01-09 12:38] LABS: Troponin I < 0.012 ng/ml
--- NOTE | 2025-01-09 13:29 | ED.GENMED ---
History of Present Illness
General
Chief Complaint: Cough
Source: patient
Exam Limitations: none
Time Seen by Provider: 01/09/25 13:26
Nursing documentation reviewed up to this point in time: agreed with
History of Present Illness
History of Present Illness:
The patient is a 74-year-old male who underwent a right upper lobectomy approximately five weeks ago for lung cancer. He reports that his recovery was progressing well until recently. With the onset of hot and humid weather, he has experienced more
laborious breathing. Over the last three days, the patient has developed a persistent cough, producing small amounts of brownish sputum, and feels increasingly exhausted. He denies fever, chills, nausea, vomiting, diarrhea, constipation, abdominal
pain, or significant chest pain, apart from a mild random pain he attributes to post-operative changes.
12/01/24: Minimally invasive right upper lobectomy with resection
of the superior segment of right lower lobe, mediastinal lymph node
dissection.
Past History
Past History
ED Past Medical History: Cancer (lung cancer) and HTN
ED Past Surgical History: Tonsilectomy and Other (R middle lung lobectomy)
Social History
Tobacco: Non-smoker
Alcohol: None
Personal:
Living: with family
Employment: Employed
Review of Systems
Review of Systems
Allergies reviewed?: Yes
All Other Systems: ROS reviewed and negative except as documented in HPI and ROS
Constitutional: Reports fatigue; Denies fever
Respiratory: Reports cough and trouble breathing
Cardiac: Denies chest pain
ABD/GI: Denies abdominal pain or nausea
Musculoskeletal: Reports no symptoms
Skin: Reports no symptoms
Neurological: Reports no symptoms
Phy Exam
Physical Exam
Physical Exam:
GENERAL: No acute distress. A&Ox3.
CONSTITUTIONAL: Afebrile.
EYES: clear, conjunctivae normal
ENMT: moist mucus membranes
RESPIRATORY: Regular respirations, nonlabored, lungs clear.
CARDIOVASCULAR: Regular rate and rhythm, no murmurs, no rubs.
GI: Soft, nontender, normal BS
MUSCULOSKELETAL: Moves with ease. Well perfused.
SKIN: Warm, dry, pink
PSYCH: Normal mood and affect. Well kept, interactive and appropriate
NEUROLOGIC: Awake, alert and oriented. No focal neurological deficits
Course
Orders/Labs/Results
Orders:
Orders
01/09/25 11:54
Electrocardiogram (*1) Urgent
Reason for Study: Other
Other Reason for Exam: Respiratory Distress
Cardiac Monitoring- Treatment ONCE
EKG- Treatment ONCE
IV Insert/Care/Rem.- Treatment PRN
CR Chest - 2 Views Urgent
Comment:
Reason For Exam: respiratory distress
O2 Therapy [RESP] Urgent
Titrate/Wean O2 to maintain O2 sat greater than (%): 93
Special Instructions: TO MAINTAIN CONTINUOUS O2 SATS >/= 93%
Pulse Ox/cont/shift [RESP] Urgent
Quantity: 1
Special Instructions: continuous pulse ox
01/09/25 12:00
Complete Blood Count/With Diff Urgent
Comprehensive Metabolic Panel Urgent
Troponin I Urgent
01/09/25 13:56
COVID-19 Antigen Urgent
Source: Nasal Swab
01/09/25 15:08
D-Dimer Urgent
01/09/25 16:11
CT Chest PE Study Urgent
Comment:
Reason For Exam: Sob, elevated dimer, recent lung resection
01/09/25 19:11
Consult Pulmonary [PULMONARY CONSULT] Urgent
Consulting Provider: Rj Roberto
Was physician already notified: Yes
Reason for consult: ELLIS, cough, R pleural effusion, recent R lung upper lobectomy
01/09/25 19:33
Admit/Transfer Patient As Directed
Co-Sign Provider:
Level of Care: Inpatient admission
Assign to:: Medical/Surgical
Physician / Group: Da
Diagnosis: R Pleural Effusion, Cough
Reason for Hospitalization: R Pleural Effusion, Cough
Expected length of stay greater than two midnights?: Yes
ELOS- Estimated Length of Stay in days: 3
I certify the patient meets the requirements for IP care: Yes
01/09/25 19:34
PRN Pain Medication Management As Directed
May give lesser potent ordered pain med per pt: Yes
preference::
Protocol:: Medication orders for pain may be administered in a
manner that supports deferring to patient preference
when the pt is:
- Requesting an ordered lesser potent pain medication.
Least to most potent pain medications are defined
as: acetaminophen < NSAID < tramadol < opioids
(morphine, oxycodone, hydromorphone).
- Requesting a lesser dose of the same medication IF
ORDERED.
- Requesting a less intrusive route of administration
if both routes are prescribed by the provider (PO <
IV).
01/09/25 19:35
Code Status As Directed
Resuscitation Status: Full Code
Abnormal Lab Results
01/09/25 01/09/25
12:00 15:08
WBC 14.0 H 10^3/uL
(4.8-10.8)
RBC 4.31 L 10^6/uL
(4.70-6.10)
Hgb 12.9 L g/dL
(13.0-18.0)
Hct 37.4 L %
(39.0-52.0)
Abs Immat Gran (auto) 0.1 H 10^3/uL
(0-0.05)
Absolute Neuts (auto) 10.9 H 10^3/uL
(1.4-6.5)
Absolute Monos (auto) 1.1 H 10^3/uL
(0.1-0.6)
Neutrophils % 78.0 H %
(42.2-75.2)
Lymphocytes % 10.7 L %
(20.5-51.1)
D-Dimer 2.50 H ug/mlFEU
(0.00-0.50)
Glucose 117 H mg/dl
(70-99)
Alkaline Phosphatase 129 H U/L
(38-126)
01/09/25 12:00
01/09/25 12:00
Vital Signs
Initial and Last Documented VS:
Initial Vital Signs
Temp Pulse Resp BP Pulse Ox
99.1 F 92 19 149/102 97
01/09/25 11:52 01/09/25 11:52 01/09/25 11:52 01/09/25 11:52 01/09/25 11:52
Last Documented Vital Signs
Temp Pulse Resp BP Pulse Ox
99.1 F 77 20 162/96 98
01/09/25 11:52 01/09/25 18:00 01/09/25 18:00 01/09/25 18:00 01/09/25 18:00
MDM/Problems Addressed
Differential Diagnosis Includes:
Postlumpectomy changes
Pneumonia/bronchitis
PE
Pleural effusion
MDM/Problems Addressed:
The patient is a 74-year-old male who underwent a right upper lobectomy approximately five weeks ago for lung cancer. He reports that his recovery was progressing well until recently. With the onset of hot and humid weather, he has experienced more
laborious breathing. Over the last three days, the patient has developed a persistent cough, producing small amounts of brownish sputum, and feels increasingly exhausted. He denies fever, chills, nausea, vomiting, diarrhea, constipation, abdominal
pain, or significant chest pain, apart from a mild random pain he attributes to post-operative changes.
12/01/24: Minimally invasive right upper lobectomy with resection of the superior segment of right lower lobe, mediastinal lymph node dissection.
Afebrile, NAD
CBC: mild leukocytosis
CMP: Unremarkable
COVID-negative
Chest x-ray radiology report read: IMPRESSION:
Postsurgical appearance of the right chest, as described. Persistent relatively stable right apical pneumothorax. Slightly increased superior right hilar parenchymal scarring and progressive mild to moderate tenting of the right diaphragm as result
of volume loss.
Workup basically negative, Case discussed with Dr. Cervantes, D-dimer ordered
6:00 PM:
D-dimer was elevated at 2.50, most likely postop elevation
PE study radiology report read: IMPRESSION: No evidence of pulmonary embolism.
Pulmonary artery branching order level of the most proximal pulmonary embolism: N/A
Partial right pneumonectomy. Moderate right pleural effusion. The suspected right apical pneumothorax is suggested on earlier chest radiographic examination is not reproduced on the current CT examination. Likely artifactual on chest radiograph.
The left lung is clear with minor dependent atelectasis in the posterior costophrenic angle.
No mediastinal shift.
Radiologist states pleural effusion is new.
Mild leukocytosis, recent lung surgery, coughing up brownish green sputum, significant paroxysms of coughing, new R pleural effusion
Plan: Admit to Hospitalist, Pulmonology also texted, Pulmonology consult in
Chronic conditions affecting care: Cancer
*Pulse Oximetry
SaO2: 97
Oxygen Mode of Delivery: Room air
Patient hypoxic: no
*Critical Care Note
Total Time (30-74mins, 75-104mins- exclusive of procedures): Not Applicable
ED Attending Note
-
Portions of this chart may have been created with voice recognition software.� Occasional wrong word or��sound alike� substitutions may have occurred due to the inherent limitations of voice recognition software.
Discharge Plan
Departure
Patient Disposition: Admit
Date of Disposition: 01/09/25
Time of Disposition: 18:53
Admit to: Med/Surg
Presentation/result/management discussed w/ accepting MD/DO: Hospitalist
Condition: Fair
Discharge Problem:
Persistent cough, ELLIS (dyspnea on exertion), Pleural effusion on right
Interventions
Interventions:
*Risk Screen - Suicide Last Done: 01/09/25 11:52
*General Assessment Last Done: 01/09/25 13:35
*Neglect/Abuse Screening Last Done: 01/09/25 11:52
*ED- Fall Risk Assessment Last Done: 01/09/25 13:39
*ED COVID-19 Vaccine History Last Done: 01/09/25 13:39
ED- Pulmonary Assessment Last Done: 01/09/25 13:35
[2025-01-09 14:18] LABS: COVID-19 Antigen Negative (Negative)
--- NOTE | 2025-01-09 19:41 | HPS.HSE ---
Family Physician
-
Family Physician: * NONE
Chief Complaint
-
Cough / SOB
History of Present Illness
Patient is a 74y M with PMH significant for adenocarcinoma of the lung s/p right upper lobectomy on 12/01/24 who presents to ED complaining of SOB and cough. Patient states that he was recovering very well s/p his surgery. He noted some
increased SOB with onset of very hot / humid weather in the past 1-2 weeks. For the past three days he also noted development of cough productive of green / brown mucus. No fevers / chills. Pos chest congestion sensation. no known sick contacts.
No GI / complaints.
Patient is on Keytruda every 6 weeks for treatment of his lung cancer.
Medical History
Past Medical History
Past Medical History: Reports Other
Additional Past Medical History:
Adenocarcinoma of the Lung
Hypertension
Mild Aortic Stenosis (Echo 11/2024)
Past Surgical History: Reports Other
Additional Past Surgical History:
Bronch / EBUS / Right Upper Lobe Biopsy (05/25/24)
Right Upper Lobectomy (12/01/24)
Right Lower Lobe Wedge Resection (12/01/24)
Port Placement
T&A
Social History
Tobacco: Non-smoker
Alcohol: None
Drug: None
Family History
Family History: Other (Uncle: Lung cancer Mother: CHF Father: CHF)
Allergies / Home Medications
Allergies reflects when Allergies were last updated in [employer].
Home Medications with original date entered in [employer]
Allergy/Medication List:
Allergies
Allergy/AdvReac Type Severity Reaction Status Date / Time
codeine Allergy Tongue Verified 01/09/25 11:52
Swelling
Home Medications
amlodipine 5 mg tablet 10 mg PO DAILY Blood pressure 01/09/25
Review of Systems
-
History Source: Patient
A 12 point ROS was completed and negative except as noted: Yes
Constitutional: Reports Fatigue; Denies Fever or Chills
EENT: Denies Sore Throat
Respiratory: Reports Cough and Trouble Breathing
Cardiac: Reports Chest Pain; Denies Diaphoresis, Palpitations or Syncope
Abdomen/GI: Denies Abdominal Pain, Nausea, Vomiting or Diarrhea
: Denies Dysuria, Frequency or Flank Pain
Musculoskeletal: Denies Joint Pain or Edema
Neurological: Denies Dizzy or Headache
Psych: Denies Depression or Anxiety
Physical Exam
Vital Signs
Vital Signs
Temp Pulse Resp BP Pulse Ox
99.1 F 77 20 162/96 98
01/09/25 11:52 01/09/25 18:00 01/09/25 18:00 01/09/25 18:00 01/09/25 18:00
Physical Exam
General: Other (74y M in no acute distress.)
HEENT: Moist mucous membranes and PERRLA
Respiratory: Other (Scattered, mild, expiratory wheezes. BS diminshed at R base. R lateral chest wall incision well-healed.)
Cardiac: S1/S2, Regular Rhythm and Murmur (II/ LIU)
GI: Soft, Non Tender, Non Distended and Normal Bowel Sounds
Musculoskeletal: No Clubbing, No Cyanosis and No Edema
Neuro: AO x 3
Laboratory Results
-
01/09/25 12:00
01/09/25 12:00
Laboratory Results
Total Bilirubin 0.6 mg/dl (0.2-1.3) 01/09/25 12:00
AST 24 U/L (17-59) 01/09/25 12:00
ALT 13 U/L (0-50) 01/09/25 12:00
Alkaline Phosphatase 129 U/L (38-126) H 01/09/25 12:00
Troponin I < 0.012 ng/ml 01/09/25 12:00
Impression/Plan
-
A/P: Patient is a 74y M with PMH significant for adenocarcinoma of the lung who presents to ED complaining of cough and SOB.
Cough / SOB
- Admit for further evaluation and treatment.
- ? Bronchitis / LRTI. No evidence of pneumonia on today's chest imaging.
- Leukocytosis, temp = 99.1, cough x 3 days. Immunocompromised on Keytruda.
- Will cover with abx for CAP for now.
- Follow fever curve and monitor for any new / worsening symptoms.
Right Pleural Effusion
- Unclear what to make of this CT finding 5 weeks s/p lobectomy. May be expected post-op finding.
- Given cough, low-grade temp, etc - will ask IR to evaluate for thoracentesis with fluid studies, cultures, etc.
- Abx for now as noted above.
- Pulmonary consulted by ED for additional recommendations.
Adenocarcinoma of the Lung
- On Keytruda every 6 weeks. s/p resection (RU lobectomy, RL wedge resection) on 12/01/24.
- Will ask Dr. Prescott to evaluate given effusion, post-op findings, any additional recommendations.
- Surgical site well-healed.
- Last Keytruda was about 3 weeks ago per patient.
Benign Hypertension
- Stable. Continue amlodipine.
DVT Prophylaxis: Lovenox
Code Status: Full
[2025-01-09] MEDS: TESSALON PERLES 200 MG PO (21:38)
[2025-01-09] MEDS: STERILE WATER FOR INJECTION 10 ML IV (21:38)
[2025-01-09] MEDS: VIBRAMYCIN 100 MG PO (21:38)
[2025-01-09] MEDS: ROCEPHIN 1000 MG IV (21:38)
[2025-01-09 23:44] LABS: LDH 290 U/L (120-246)
[2025-01-10 05:22] LABS: Hematocrit 40.3 % (39.0-52.0); Hemoglobin 13.5 g/dL (13.0-18.0); Mean Corp Hgb Conc. 33.5 g/dL (33.0-37.0); Mean Corpuscular Hgb 29.7 pg (27.0-31.0); Mean Corpuscular Volume 88.6 fL (80.0-94.0); Mean Platelet Volume 9.4 fL (7.4-10.4); Platelet Count 271 10^3/uL (130-400); Red Blood Cell Count 4.55 10^6/uL (4.70-6.10); Red Cell Dist. Width 12.2 % (11.5-14.5); White Blood Cell Count 8.9 10^3/uL (4.8-10.8)
[2025-01-10 05:52] LABS: Blood Urea Nitrogen 13 mg/dl (9-20); Calcium 8.8 mg/dl (8.4-10.2); Carbon Dioxide 26 mmol/L (22-30); Chloride 103 mmol/L (98-107); Estimated Creatinine Clearance 68 ml/min; Glucose 98 mg/dl (70-99); Potassium 4.9 mmol/L (3.5-5.1); Sodium 138 mmol/L (135-145); eGFR > 60.00
[2025-01-10 07:22] VITALS: BP 139/94
[2025-01-10] MEDS: VIBRAMYCIN 100 MG PO ×2 (08:00→21:09)
[2025-01-10] MEDS: NORVASC 10 MG PO (08:00)
--- NOTE | 2025-01-10 08:38 | W.PN.HOSP.TC ---
Today's Communication/Plan
-
Continue antibiotics
IR consult for thoracentesis
Continue nebs
Incentive spirometer
Assessment / Plan
Assessment / Plan
Gen-AAOx3, NAD
HEENT-NC, AT, anicteric, clear oral mm
Neck-supple
CV-reg, no M, +S1/S2
Lungs-bilateral expiratory wheezing
Abd-soft, NT, ND
Ext-no edema
Musculoskeletal-no cyanosis, clubbing
Skin-warm and dry
Neuro-grossly non-focal
Psych-calm, cooperative
Symptomatic right pleural effusion -differential diagnosis of malignant versus infectious versus other. Presentation with cough and mild dyspnea on exertion since last week.
Moderate pleural effusion noted on CT chest. Await thoracentesis, IR consulted. Check cell count, cytology, culture.
Currently on empiric antibiotics for possible community-acquired pneumonia, although I do see no infiltrates on chest x-ray or CT. He is obviously immunosuppressed. Afebrile here, leukocytosis resolved. Looks nontoxic.
Right lung pulmonary adenocarcinoma -diagnosed 2023. Underwent 5 cycles of chemotherapy, right upper lobectomy and right superior segment lower lobe lobectomy 12/01/[address] Prescott. On Keytruda every [address] Wharton.
2 view chest x-ray reports right apical pneumothorax, however this was not seen on CT chest. Suspect postsurgical changes on x-ray.
He does have mild expiratory wheezing bilaterally on exam. Continue albuterol nebs. Add incentive spirometer.
Pulmonary consulted.
Essential hypertension -stable.
Obesity due to excess calories
Full code
Anticipated Discharge: > 48 hours
Subjective/Interval History
-
Date of Service: January 10, 2025
Patient seen and examined. Complaining of cough. Denies shortness of breath.
Objective Data
-
Labs:
Laboratory Results
06/29/25
04:07
WBC 8.9
Hgb 13.5
Hct 40.3
Plt Count 271
Sodium 138
Potassium 4.9
Chloride 103
Carbon Dioxide 26
BUN 13
Creatinine 1.0
Glucose 98
Calcium 8.8
Vital Signs:
Vital Signs
Temp Pulse Resp BP Pulse Ox
98 F 74 18 139/94 97
01/10/25 07:22 01/10/25 08:00 01/10/25 07:22 01/10/25 08:00 01/10/25 07:22
I&O
01/09/25 01/10/25 01/11/25
06:59 06:59 06:59
Intake Total 0 / 0
Balance 0 / 0
Review of Systems
-
History Source: Patient
All other systems: Reviewed and negative
--- NOTE | 2025-01-10 10:32 | CON.PUL ---
Consultation
Consultation Request
Date/Time Consultation Requested: 01/09/2025 - 191
Date/Time Consultation Performed: 01/10/2025942
Requesting Provider: Maria G Turner NP
Performing Provider: Dr. Roberto
Reason for Consultation: ELLIS/Cough, r-pleural effusion
Medical History
-
Chief Complaint: Increasing SOB
History of Present Illness:
74-year-old male Pulmonary adenocarcinoma (stage IIIa) s/p neoadjuvant chemotherapy + right upper lobectomy + right lower wedge resection (12/01/2024) currently on Keytruda q6 weeks, seasonal allergic rhinitis, basal carcinoma, depression,
hyperlipidemia, postnasal drip, and history of eosinophilia who presents with persisting cough. He says that he has been having worsening shortness of breath since recent heat wave. The hot weather is also been causing him to cough which has been
significantly more noticeable since this past Saturday (01/06/2025). Cough is productive of clear phlegm which turned to brown/green/yellow although it is now dry. He has had no fevers, chills, no recent sick contacts, nor recent travel. He is
now receiving Keytruda every 6 weeks until August 2025. In the ER, he was afebrile to 99.1 �F, pulse rate 92, respiratory rate 19, BP 149/102 and saturating 97% on room air. Labs significant for leukocytosis to 14, Hb 12.9, absolute eosinophil
count 400, D-dimer 2.5, LDH 290, and COVID-19 antigen negative. CXR showed postsurgical changes of the right chest with a suspected persistent right apical pneumothorax and increased right hilar scarring with tenting of the right diaphragm.
Subsequent CTA chest was performed which did not show any right-sided pneumothorax, with partial right pneumonectomy changes, with a moderate size right pleural effusion. He was admitted to the hospitalist service, and given his cough + SOB and
immunocompromise state, he was empirically started on antibiotics to cover for CAP. Pulmonary service now consulted for additional management/recommendations.
When I saw the patient, he was resting in bed in no acute distress. Currently on room air. Says he feels better especially since being inside in the air conditioning as being out in the heat makes him feel much worse with his breathing and
increased cough. He currently denies chest pain, CESPEDES, abdominal pain, nausea, fevers or chills.
PMHx: Pulmonary adenocarcinoma (stage IIIa) s/p neoadjuvant chemotherapy + right upper lobectomy + right lower wedge resection (12/01/2024) currently on Keytruda, seasonal allergic rhinitis, basal carcinoma, depression, hyperlipidemia
PSHx: Tonsillectomy and adenoidectomy, chest port, mediastinoscopy with biopsy, right upper lobe lobectomy with right lower lobe wedge resection (12/01/2024)
Past Medical History
Past Medical History: Other (Above as per HPI)
Past Surgical History: Other (Above as per HPI)
Social History
Tobacco: Non-smoker
Alcohol: None
Drug: None
Personal:
Living: With Family (Spouse: Carmela)
Family History
Family History: CAD (s/p CABG) and Other (Father + mother: CHF)
Allergies / Home Medications
Allergies
Allergy/AdvReac Type Severity Reaction Status Date / Time
codeine Allergy Tongue Verified 01/09/25 11:52
Swelling
Home Medications
�Medication �Instructions �Recorded �Confirmed �Last Taken �Type
amlodipine 5 mg tablet 10 mg PO DAILY Blood pressure 01/09/25 01/09/25 Unknown History
Review of Systems
-
History Source: Patient
All other systems: Negative unless noted
Vitals / Labs / Diagnostic Testing
Vital Signs
Temp Pulse Resp BP Pulse Ox
98 F 74 18 139/94 97
01/10/25 07:22 01/10/25 08:00 01/10/25 07:22 01/10/25 08:00 01/10/25 08:40
Lab Data
01/10/25 04:07
01/10/25 04:07
Diagnostic Testing:
Physical Exam
-
HEENT: Normocephalic and Anicteric
Cardiovascular: S1/S2, Murmur (LIU heard best at RUSB) and Peripheral Edema (Trace lower extremity pitting edema bilaterally)
Respiratory: Wheeze (negative), Rales (Bibasilar (R >L)), Rhonchi (negative) and Non-Labored Respirations
GI: Soft, Distended (Abdominal obesity), Non Tender and Normal Bowel Sounds
Neurology: AO x 3 and Tremors (negative)
Skin: Warm and Dry
General: Respiratory Distress (negative), Comfortable, Fever (negative), Chills (negative) and Other (Pleasant mood)
Assessment
-
Assessment: 74-year-old male Pulmonary adenocarcinoma (stage IIIa) s/p neoadjuvant chemotherapy + right upper lobectomy + right lower wedge resection (12/01/2024) currently on Keytruda q6 weeks, seasonal allergic rhinitis, basal carcinoma,
depression, hyperlipidemia, postnasal drip, and history of eosinophilia who presents with persisting cough. He says that he has been having worsening shortness of breath since recent heat wave. The hot weather is also been causing him to cough
which has been significantly more noticeable since this past Saturday (01/06/2025). Cough is productive of clear phlegm which turned to brown/green/yellow although it is now dry. He has had no fevers, chills, no recent sick contacts, nor recent
travel. He is now receiving Keytruda every 6 weeks until August 2025. In the ER, he was afebrile to 99.1 �F, pulse rate 92, respiratory rate 19, BP 149/102 and saturating 97% on room air. Labs significant for leukocytosis to 14, Hb 12.9,
absolute eosinophil count 400, D-dimer 2.5, LDH 290, and COVID-19 antigen negative. CXR showed postsurgical changes of the right chest with a suspected persistent right apical pneumothorax and increased right hilar scarring with tenting of the
right diaphragm. Subsequent CTA chest was performed which did not show any right-sided pneumothorax, with partial right pneumonectomy changes, with a moderate size right pleural effusion. He was admitted to the hospitalist service, and given his
cough + SOB and immunocompromise state, he was empirically started on antibiotics to cover for CAP. Pulmonary service now consulted for additional management/recommendations.
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
hyperlipidemia
Impression:
#Right lower lobe pleural effusion (DDx includes post-operative related from recent RUL lobectomy + RLL wedge resection vs parapneumonic effusion vs malignant pleural effusion)
#Worsening SOB + cough likely due to URI vs R-sided CAP (possibly being obscured by RLL effusion)
#Chronic anemia
#Invasive pulmonary adenocarcinoma (stage IIIa) s/p neoadjuvant chemotherapy s/p right upper lobe lobectomy with right lower lobe wedge resection currently on Keytruda
#Immunocompromised state on Keytruda q6 weeks until Aug 2025
#HTN
Plan:
- Patient follows with surgical oncology, Dr. Prescott, and although he has stage IIIa lung cancer involving his right upper lobe + right lower lobe, he had neoadjuvant systemic therapy and subsequent PET/CT on 10/01/2024 showed a positive response to
therapy with a decrease in size and FDG avidity of the right upper lung zone mass now with max SUV 9.8 (previously 17.1) and improvement in size and FDG avidity of the right paratracheal lymph node now measuring 9 mm (previously 1.4 cm) and now with
max SUV 2.8 (previously 5).
- On 12/01/2024, he underwent a minimally invasive right upper lobectomy with wedge resection of the superior segment of the right lower lobe and mediastinal lymph node dissection
- Pathology showed negative margins and the lymph nodes that were collected were all negative for malignancy
- Postoperatively he developed right hemidiaphragm elevation with right hilar/RLL parenchymal scarring with a right apical pneumothorax --> the right lower lobe diaphragm tenting has increased and based on the CTA chest on 01/09, the right apical
pneumothorax has resolved and there is now a moderate-sized right pleural effusion with other right upper lobectomy postoperative changes
- Recommend to consult surgical oncology via Dr. Prescott given he did the surgery recently
- Considering he has been having increasing shortness of breath, would recommend thoracentesis of right sided effusion
- Send fluid studies for cell, differential, cytopathology, cultures, protein, LDH, glucose, pH
- Considering patient is immunocompromised with cough + SOB with productive phlegm, I agree with empiric treatment for CAP
- Continue with ceftriaxone + doxycycline
- Check set of blood cultures
- Check sputum culture if he can produce a decent sample
- Check urine antigens for Legionella + strep pneumonia
- Patient's creatinine is normal with no recent trauma or recent cardiac event, hence I will check a procalcitonin and if negative, consider stopping antibiotics altogether
- Maintain SpO2 >90-94% with supplemental O2 as needed
- prn nebulized bronchodilators - not currently bronchospastic
- Incentive spirometer encouraged q1hr while awake
- Replete electrolytes with K>4, Mg>2
- Trend H/H and transfuse if needed to keep Hb>7g/dL; keep plt>20k, unless there is concern for bleeding then keep plt>50k
- Maintain euglycemia with goal BG >100 and <180
- DVT ppx: LMWH
Pulmonary service will continue to follow along. I will assure that he has outpatient follow-up with me (Dr. Roberto).
Data:
CTA Chest 01/09/2025:
No evidence of pulmonary embolism.
Pulmonary artery branching order level of the most proximal pulmonary embolism: N/A
Partial right pneumonectomy. Moderate right pleural effusion. The suspected right apical pneumothorax is suggested on earlier chest radiographic examination is not reproduced on the current CT examination. Likely artifactual on chest radiograph.
The left lung is clear with minor dependent atelectasis in the posterior costophrenic angle.
No mediastinal shift.
Total time spent today was 59 minutes for this encounter. Time includes reviewing laboratory test/imaging results, reviewing pertinent medical records, obtaining and reviewing medical history, performing an appropriate exam, ordering medications,
tests and procedures. Time also includes documentation of this encounter, coordinating patient care and communicating with other healthcare professionals. Total time does not include separately billed tests performed on this date of service.
[2025-01-10 15:36] VITALS: BP 128/80
[2025-01-10] MEDS: LOVENOX 40 MG SC (17:10)
[2025-01-10] MEDS: ROCEPHIN 1000 MG IV (21:09)
[2025-01-10] MEDS: STERILE WATER FOR INJECTION 10 ML IV (21:09)
[2025-01-10 23:30] VITALS: BP 147/93
[2025-01-11 06:00] VITALS: BMI 30.1
--- NOTE | 2025-01-11 07:09 | CON.SURG ---
Surgical Consultation
-
Date: 01/11/2025
Reason for Consult
The patient is a 74-year-old gentleman who presented with shortness of breath and cough.
History of Present Illness
The patient underwent a right upper lobectomy for locally advanced lung cancer after neoadjuvant systemic therapy on 2024-12-01. Postoperatively, he had a near-complete response to the therapy and has been doing well. He presented on 2025-01-09 with
shortness of breath and cough. A chest CT angiogram showed no evidence of pulmonary embolism but revealed a right pleural effusion. He is currently receiving Keytruda under the guidance of Dr. Dg Wharton. Today, he reports feeling well and is
oxygenating around 97% on room air. He denied any significant SOB. Even his cough has significantly improved.
Past Medical History
- Right upper lobe lung cancer
- Hypertension
- Aortic stenosis
Allergies
- Codeine
Physical Exam
- Lungs: Decreased BS on the right lower base
- Heart: Irregular rhythm in rate
- Right chest incision: Healed well without any evidence of infection
Assessment
- Cough/Shortness of breath/right pleural effusion: The pleural effusion may contribute to shortness of breath, but it is probably not the main cause of his dyspnea. His right pleural effusion on the CT scan is consistent with post-operative changes.
Recommendations
- The right pleural effusion visualized on the CT scan is an expected finding after a lobectomy, which should improved with time
- I do not recommend aspiration since he has minimal SOB with good oxygenation
- Effusion should resolve slowly over time
- No active surgical issues at this time
- Will follow with you
[2025-01-11 07:20] LABS: Hematocrit 40.2 % (39.0-52.0); Hemoglobin 13.7 g/dL (13.0-18.0); Mean Corp Hgb Conc. 34.1 g/dL (33.0-37.0); Mean Corpuscular Hgb 29.5 pg (27.0-31.0); Mean Corpuscular Volume 86.6 fL (80.0-94.0); Platelet Count 264 10^3/uL (130-400); Red Blood Cell Count 4.64 10^6/uL (4.70-6.10); Red Cell Dist. Width 12.1 % (11.5-14.5)
[2025-01-11 07:32] LABS: INR 1.02; PT 13.7 Sec (11.4-14.6)
[2025-01-11 07:51] VITALS: BP 152/91
[2025-01-11 08:06] LABS: Procalcitonin < 0.05 ng/ml (0.0-0.25)
[2025-01-11] MEDS: VIBRAMYCIN 100 MG PO (08:57)
[2025-01-11] MEDS: NORVASC 10 MG PO (08:57)
[2025-01-11 09:33] LABS: ALT (SGPT) 12 U/L (0-50); AST (SGOT) 23 U/L (17-59); Albumin 4.1 g/dl (3.5-5.0); Alkaline Phosphatase 112 U/L (38-126); Blood Urea Nitrogen 15 mg/dl (9-20); Calcium 9.2 mg/dl (8.4-10.2); Carbon Dioxide 18 mmol/L (22-30); Chloride 108 mmol/L (98-107); Estimated Creatinine Clearance 68 ml/min; Glucose 111 mg/dl (70-99); Magnesium 2.2 mg/dl (1.6-2.3); Potassium 4.5 mmol/L (3.5-5.1); Sodium 136 mmol/L (135-145); Total Bilirubin 0.5 mg/dl (0.2-1.3); Total Protein 6.7 g/dl (6.3-8.2); eGFR > 60.00
--- NOTE | 2025-01-11 12:47 | CM ---
Initial assessment completed with patient who lives with his in a 4 story townhouse with B/B on 3rd and 1/2 bath on all other levels, 3 steps to enter. 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
home, no in-home services. Does have a HC-PO[employer], no service. [id number] retired. Pharmacy is [facility] [address] in [place]. Discharge POC: Anticipate no needs.
--- NOTE | 2025-01-11 12:56 | CM ---
Patient has been medically cleared for discharge to home with no additional skilled services. will transport home. Admission IMM signed in less than 48 hours.
--- NOTE | 2025-01-11 13:09 | W.PN.HOSP.TC ---
Today's Communication/Plan
-
f/u pcp, Dr. Prescott, Pulmonary outpt
Tessalon Perles
CBC and CMP in 5-7 days
Assessment / Plan
Assessment / Plan
Gen-AAOx3, NAD
HEENT-NC, AT, anicteric, clear oral mm
Neck-supple
CV-reg, no M, +S1/S2
Lungs-bilateral expiratory wheezing
Abd-soft, NT, ND
Ext-no edema
Musculoskeletal-no cyanosis, clubbing
Skin-warm and dry
Neuro-grossly non-focal
Psych-calm, cooperative
Cough/Shortness of breath/right pleural effusion:
--most likely inflammation post lobectomy
-Dr. Prescott has seen patient, does not recommend aspiration
-Symptoms Improving
-will provide empiric abx therapy regardless
-educated on if recurring symptoms and coming back to the hospital
-F/u Pulm, Surg Onc outpatient
#Right lung pulmonary adenocarcinoma -diagnosed 2023. Underwent 5 cycles of chemotherapy, right upper lobectomy and right superior segment lower lobe lobectomy 12/01/[address] Prescott. On Keytruda every [address] Wharton.
2 view chest x-ray reports right apical pneumothorax, however this was not seen on CT chest. Suspect postsurgical changes on x-ray.
He does have mild expiratory wheezing bilaterally on exam. Continue albuterol nebs. Add incentive spirometer.
Pulmonary consulted - f/u outpt
Essential hypertension -stable.
Obesity due to excess calories
Full code
More than 30 minutes spent in discharge including
Final examination of the patient
Summarizing hospital stay
Instructions for continuing care to all relevant caregivers
Preparation of discharge records, prescriptions, and referral forms
Total time spent (in minutes): 36
Anticipated Discharge: Today
Subjective/Interval History
-
Date of Service: January 11, 2025
sob, cough improved
Objective Data
-
Labs:
Laboratory Results
01/11/25
07:06
WBC 9.0
Hgb 13.7
Hct 40.2
Plt Count 264
PT 13.7
INR 1.02
APTT 30.0
Sodium 136
Potassium 4.5
Chloride 108 H
Carbon Dioxide 18 L
BUN 15
Creatinine 1.0
Glucose 111 H
Calcium 9.2
Total Bilirubin 0.5
AST 23
ALT 12
Alkaline Phosphatase 112
Vital Signs:
Vital Signs
Temp Pulse Resp BP Pulse Ox
98.4 F 78 18 152/91 97
01/11/25 07:51 01/11/25 08:57 01/11/25 07:51 01/11/25 08:57 01/11/25 07:51
I&O
01/10/25 01/11/25 01/12/25
06:59 06:59 06:59
Intake Total 0 / 0 840 / 840 780 / 780
Balance 0 / 0 840 / 840 780 / 780
Review of Systems
-
History Source: Patient
All other systems: Not reviewed unless documented
Data Reviewed
-
CT Scan: Report Reviewed by me
Labs: Labs Reviewed by me
--- NOTE | 2025-01-11 13:14 | W.DS.TRANS ---
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
-
Discharge Instructions:
Discharge Diagnosis/Procedures Right pleural effusion, shortness of breath
Diet Low Fat,Regular
Activity As tolerated
Blood Work CBC, CMP in 5-7 days with PCP
Others Tests Imaging as per surgery, oncologist outpatient
Instructions:
Stand-Alone Forms:
Changes to Home Medications: Yes
Discharge Medications:
DC Medications w/original date entered in [employer]
amlodipine 5 mg tablet 10 mg PO DAILY Blood pressure 01/09/25
benzonatate 100 mg capsule 200 mg (2 x 100 mg) PO TIDPRN PRN Cough #30 caps 01/11/25
cefdinir 300 mg capsule 300 mg PO Q12H 5 days #10 caps 01/11/25
doxycycline hyclate 100 mg capsule 100 mg PO Q12 3 days #6 caps 01/11/25
Home Medication Changes
benzonatate 100 mg capsule 200 mg (2 x 100 mg) PO TIDPRN PRN Cough #30 caps 01/11/25
cefdinir 300 mg capsule 300 mg PO Q12H 5 days #10 caps 01/11/25
doxycycline hyclate 100 mg capsule 100 mg PO Q12 3 days #6 caps 01/11/25
Pending Results: Yes
== END 2025-01-11 13:18 | disposition home or self-care (01) | DRG 187 ==
LOC: 4 EAST ACU 20:06
PROVIDERS: Registered Nurse; ADMITTING PHYSICIAN Hospitalist; ATTENDING PHYSICIAN Internal Medicine; CONSULT PHYSICIAN Internal Medicine Critical Care Medicine; CONSULT PHYSICIAN Surgery; EMERGENCY PHYSICIAN Emergency Medicine
DX: J90 Pleural effusion, not elsewhere classified (principal); D84.9 Immunodeficiency, unspecified; Z85.118 Personal history of other malignant neoplasm of bronchus and lung; Z90.2 Acquired absence of lung [part of]; Z92.21 Personal history of antineoplastic chemotherapy; I10 Essential (primary) hypertension; E66.09 Other obesity due to excess calories; Z68.30 Body mass index [BMI] 30.0-30.9, adult; Z82.49 Family history of ischemic heart disease and other diseases of the circulatory system; Z80.1 Family history of malignant neoplasm of trachea, bronchus and lung; Z88.5 Allergy status to narcotic agent; Z79.899 Other long term (current) drug therapy; E78.5 Hyperlipidemia, unspecified; F32.A Depression, unspecified; Z11.52 Encounter for screening for COVID-19
CPT/HCPCS: 71046; 71275; 80048; 80053; 83615; 83735; 84100; 84145; 84484; 85025; 85027; 85379; 85610; 85730; 87040; 87070; 87205; 87449; 87641; 87811; 87899; 93005; 94760; 99285; Q9967

== ENCOUNTER → 2025-01-25 08:07 | Outpatient (REF) | payer MEDICARE, OTHER, SELFPAY ==
[2025-01-25 08:53] LABS: Hematocrit 42.4 % (39.0-52.0); Hemoglobin 14.0 g/dL (13.0-18.0); Mean Corp Hgb Conc. 33.0 g/dL (33.0-37.0); Mean Corpuscular Volume 87.8 fL (80.0-94.0); Nucleated Red Blood Cells % 0 % (-); Platelet Count 294 10^3/uL (130-400); Red Cell Dist. Width 12.2 % (11.5-14.5)
[2025-01-25 09:16] LABS: ALT (SGPT) 17 U/L (0-50); AST (SGOT) 26 U/L (17-59); Albumin 4.3 g/dl (3.5-5.0); Alkaline Phosphatase 125 U/L (38-126); Blood Urea Nitrogen 22 mg/dl (9-20); Calcium 9.5 mg/dl (8.4-10.2); Carbon Dioxide 24 mmol/L (22-30); Chloride 105 mmol/L (98-107); Glucose 126 mg/dl (70-99); HDL Cholesterol 44 mg/dl; LDL Cholesterol, Calculated 175 mg/dl; Potassium 4.4 mmol/L (3.5-5.1); Sodium 138 mmol/L (135-145); Total Protein 7.0 g/dl (6.3-8.2); Very Low Density Lipoprotein 28 mg/dl (0-30); eGFR 58.37
[2025-01-25 09:45] LABS: TSH 5.41 uIU/ml (0.47-4.68)
[2025-01-25 10:20] LABS: Glycohemoglobin (HgbA1c) 5.5 % (4.0-5.6)
[2025-01-26 19:51] LABS: Thyroglobulin Antibodies <1.5 IU/mL (0.0-4.0)
[2025-01-26 23:18] LABS: Total T3 (Sendout) 152 ng/dL (80-200)
== END ==
LOC: REG 08:07
PROVIDERS: ATTENDING PHYSICIAN Internal Medicine Hematology & Oncology; REFERRING PHYSICIAN Internal Medicine Cardiovascular Disease
DX: C34.11 Malignant neoplasm of upper lobe, right bronchus or lung (principal); E03.9 Hypothyroidism, unspecified; E78.2 Mixed hyperlipidemia; R73.09 Other abnormal glucose
CPT/HCPCS: 36415; 80053; 80061; 83036; 84439; 84443; 84480; 85025; 86376; 86800

== ENCOUNTER → 2025-03-05 10:55 | Outpatient (REF) | payer MEDICARE, OTHER, SELFPAY | LOC: RAD 10:55 | PROVIDERS: ATTENDING PHYSICIAN Internal Medicine Hematology & Oncology; FAMILY PHYSICIAN Hospitalist | DX: C34.11 Malignant neoplasm of upper lobe, right bronchus or lung (principal); E03.9 Hypothyroidism, unspecified | CPT/HCPCS: 71250 ==

== ENCOUNTER → 2025-03-08 09:35 | Outpatient (REF) | payer MEDICARE, OTHER, SELFPAY ==
[2025-03-08 11:02] LABS: Hematocrit 42.2 % (39.0-52.0); Hemoglobin 13.7 g/dL (13.0-18.0); Mean Corp Hgb Conc. 32.5 g/dL (33.0-37.0); Mean Corpuscular Volume 84.7 fL (80.0-94.0); Nucleated Red Blood Cells % 0 % (-); Platelet Count 248 10^3/uL (130-400); Red Cell Dist. Width 13.2 % (11.5-14.5)
[2025-03-08 11:37] LABS: ALT (SGPT) 17 U/L (0-50); AST (SGOT) 25 U/L (17-59); Albumin 4.5 g/dl (3.5-5.0); Alkaline Phosphatase 116 U/L (38-126); Blood Urea Nitrogen 14 mg/dl (9-20); Calcium 9.5 mg/dl (8.4-10.2); Carbon Dioxide 27 mmol/L (22-30); Chloride 103 mmol/L (98-107); Glucose 99 mg/dl (70-99); Potassium 5.1 mmol/L (3.5-5.1); Sodium 136 mmol/L (135-145); Total Protein 7.1 g/dl (6.3-8.2); eGFR > 60.00
[2025-03-08 12:02] LABS: TSH 2.57 uIU/ml (0.47-4.68)
[2025-03-09 16:28] LABS: Total T3 (Sendout) 112 ng/dL (80-200)
== END ==
LOC: REG 09:35
PROVIDERS: ATTENDING PHYSICIAN Internal Medicine Hematology & Oncology; FAMILY PHYSICIAN Hospitalist
DX: C34.11 Malignant neoplasm of upper lobe, right bronchus or lung (principal); E03.9 Hypothyroidism, unspecified
CPT/HCPCS: 36415; 80053; 84439; 84443; 84480; 85025

== ENCOUNTER → 2025-04-26 07:59 | Outpatient (REF) | payer MEDICARE, OTHER, SELFPAY ==
[2025-04-26 09:25] LABS: Hematocrit 41.8 % (39.0-52.0); Hemoglobin 13.7 g/dL (13.0-18.0); Mean Corp Hgb Conc. 32.8 g/dL (33.0-37.0); Mean Corpuscular Volume 85.5 fL (80.0-94.0); Nucleated Red Blood Cells % 0 % (-); Platelet Count 225 10^3/uL (130-400); Red Cell Dist. Width 14.3 % (11.5-14.5)
[2025-04-26 10:11] LABS: ALT (SGPT) 16 U/L (0-50); AST (SGOT) 22 U/L (17-59); Albumin 4.1 g/dl (3.5-5.0); Alkaline Phosphatase 121 U/L (38-126); Blood Urea Nitrogen 18 mg/dl (9-20); Calcium 9.0 mg/dl (8.4-10.2); Carbon Dioxide 27 mmol/L (22-30); Chloride 105 mmol/L (98-107); Glucose 105 mg/dl (70-99); HDL Cholesterol 50 mg/dl; LDL Cholesterol, Calculated 92 mg/dl; Potassium 4.9 mmol/L (3.5-5.1); Sodium 138 mmol/L (135-145); Total Protein 6.6 g/dl (6.3-8.2); Very Low Density Lipoprotein 16 mg/dl (0-30); eGFR > 60.00
[2025-04-27 14:29] LABS: Total T3 (Sendout) 118 ng/dL (80-200)
== END ==
LOC: REG 07:59
PROVIDERS: ATTENDING PHYSICIAN Internal Medicine Hematology & Oncology; FAMILY PHYSICIAN Hospitalist; REFERRING PHYSICIAN Internal Medicine Cardiovascular Disease
DX: C34.11 Malignant neoplasm of upper lobe, right bronchus or lung (principal); E03.9 Hypothyroidism, unspecified
CPT/HCPCS: 36415; 80053; 80061; 84439; 84443; 84480; 85025

== ENCOUNTER → 2025-06-14 09:25 | Outpatient (REF) | payer MEDICARE, OTHER, SELFPAY ==
[2025-06-14 10:58] LABS: Hematocrit 45.5 % (39.0-52.0); Hemoglobin 14.5 g/dL (13.0-18.0); Mean Corp Hgb Conc. 31.9 g/dL (33.0-37.0); Mean Corpuscular Volume 87.2 fL (80.0-94.0); Nucleated Red Blood Cells % 0 % (-); Platelet Count 283 10^3/uL (130-400); Red Cell Dist. Width 14.3 % (11.5-14.5)
[2025-06-14 11:45] LABS: ALT (SGPT) 22 U/L (0-50); AST (SGOT) 26 U/L (17-59); Albumin 4.7 g/dl (3.5-5.0); Alkaline Phosphatase 160 U/L (38-126); Blood Urea Nitrogen 18 mg/dl (9-20); Calcium 9.3 mg/dl (8.4-10.2); Carbon Dioxide 30 mmol/L (22-30); Chloride 99 mmol/L (98-107); Glucose 91 mg/dl (70-99); Potassium 4.9 mmol/L (3.5-5.1); Sodium 136 mmol/L (135-145); Total Protein 7.5 g/dl (6.3-8.2); eGFR > 60.00
[2025-06-14 12:13] LABS: TSH 10.70 uIU/ml (0.47-4.68)
[2025-06-15 13:34] LABS: Total T3 (Sendout) 126 ng/dL (80-200)
== END ==
LOC: REG 09:25
PROVIDERS: ATTENDING PHYSICIAN Internal Medicine Hematology & Oncology
DX: C34.11 Malignant neoplasm of upper lobe, right bronchus or lung (principal); E03.9 Hypothyroidism, unspecified; R06.09 Other forms of dyspnea
CPT/HCPCS: 36415; 80053; 84439; 84443; 84480; 85025